=== PATIENT | male | born 1945 | race Caucasian/White ===

== ENCOUNTER 2019-11-13 08:46 | Inpatient (IN) ==
[2019-11-13] MEDS ORDERED: SODIUM CHLORIDE 0.9% 1000ML 1,000 ML IV SCH (09:00)
[2019-11-13] MEDS ORDERED: EPINEPHrine 2 MG in DEXTROSE 5% 250 ML IV STA (09:07)
[2019-11-13] MEDS ORDERED: STAT IV Infusion **Titration per Protocol STA ×2 (09:07→18:54)
[2019-11-13 09:24] LABS: Mean Corpuscular Hgb Conc 30.5 g/dL (32-36); Nucleated RBC # (auto) 0.07 K/uL (0-0); Nucleated RBC % (auto) 0.4 %
[2019-11-13 09:25] LABS: iSTAT Arterial Blood Gas HCO3 28 meg/L (19-24); iSTAT Arterial Blood Gas pCO2 111 mmHg (35-46); iSTAT Arterial Blood Gas pH 7.02 (7.35-7.45); iSTAT Arterial Blood Gas pO2 63 mmHg (80-95); iSTAT Carbon Dioxide 32 mmol/L (24-31); iSTAT Hematocrit 44 % (42-52); iSTAT Potassium 5.5 mmol/L (3.3-5.0); iSTAT Sodium 146 mmol/L (135-144)
[2019-11-13] MEDS: EPINEPHrine (STAT use only) 2 MG in D5W 250 ML IV SCH ×2 (09:28→12:32)
[2019-11-13 09:30] LABS: Hematocrit (blood only) 51.5 % (42-52); Hemoglobin 15.7 g/dL (14.0-18.0); Mean Corpuscular Hemoglobin 28.6 pg (25-34); RDW Coefficient of Variation 13.8 % (11.5-14.5); RDW Standard Deviation 47.6 fL (36.4-46.3); Red Blood Count 5.48 M/uL (4.7-6.1); White Blood Count 17.59 K/uL (4.8-10.8)
[2019-11-13 09:55] LABS: Mean Platelet Volume 12.8 fL (7.4-10.4); Platelet Count 151 K/uL (130-400)
[2019-11-13 09:56] LABS: Basophils # (auto) 0.08 K/uL (0-0.2); Basophils % (auto) 0.5 %; Eosinophils # (auto) 0.24 K/uL (0-0.5); Eosinophils % (auto) 1.4 %; Immature Granulocytes # (auto) 1.17 K/uL (0.00-0.02); Immature Granulocytes % (auto) 6.7 %; Lymphocytes # (auto) 4.42 K/uL (1.2-3.4); Lymphocytes % (auto) 25.1 %; Monocytes # (auto) 1.74 K/uL (0.11-0.59); Monocytes % (auto) 9.9 %; Neutrophils # (auto) 9.94 K/uL (1.4-6.5); Neutrophils % (auto) 56.4 %; Platelet Estimate Decreased (Normal)
[2019-11-13 10:11] LABS: Appearance Urine Turbid (Clear); Bacteria Urine Automated 2+ (Negative); Bilirubin Urine Negative (Negative); Blood Urine Trace (Negative); Color Urine Yellow; Epithelial Cell Urine Auto >30 /lpf (0-5); Glucose Urine UA Negative (Negative); Ketones Urine Negative (Negative); Leukocyte Esterase Urine Negative (Negative); Nitrite Urine Negative (Negative); Protein Urine 1+ (Negative); RBC Urine Automated 0-4 /hpf (0-4); Specific Gravity Urine 1.014 (1.000-1.030); Urobilinogen Urine Negative (Negative)
--- NOTE | 2019-11-13 10:11 | XRay Report ---
XR chest 1V portable CLINICAL HISTORY: weakness dyspnea COMPARISON STUDY: 12/03/2013 FINDINGS: Interval development of a diffuse right upper lobe infiltrate. Less prominent interval left upper lobe infiltrate. Lower lungs are generally clear. Slight accentuation left basilar lung markings. Myocardial megaly. Postoperative changes to the low cervical and upper thoracic spine are noted. Endotracheal tube 2.5 cm above the demetria. IMPRESSION: 1. Interval development of diffuse right upper and to a lesser extent left upper lobe infiltrates. 2. Potential early interstitial infiltrative change left base. ACT 112: Negative or not required by law. The above report was generated using voice recognition software. It may contain grammatical, syntax or spelling errors. Electronically signed by: Marcio Mack M.D. 11/13/2019 10:10 AM
[2019-11-13 10:12] LABS: INR 1.6 (0.9-1.1); Prothrombin Time 15.6 Seconds (9.0-12.0)
[2019-11-13 10:27] LABS: iSTAT Arterial Blood Gas HCO3 20 meg/L (19-24); iSTAT Arterial Blood Gas pCO2 52 mmHg (35-46); iSTAT Arterial Blood Gas pO2 243 mmHg (80-95); iSTAT Carbon Dioxide 22 mmol/L (24-31); iSTAT Hematocrit 45 % (42-52); iSTAT Hemoglobin 15.3 g/dl (14.0-18.0); iSTAT Potassium 7.2 mmol/L (3.3-5.0); iSTAT Sodium 135 mmol/L (135-144)
[2019-11-13 10:31] LABS: Sperm Urine Present (None Prsent)
[2019-11-13 10:31] LABS: Albumin Globulin Ratio 0.9 (0.9-2)
[2019-11-13 10:32] LABS: Creatine Kinase 817 U/L (39-308)
[2019-11-13 10:37] LABS: Alanine Aminotransferase 78 U/L (12-78); Albumin Level 2.5 gm/dl (3.4-5.0); Alkaline Phosphatase 95 U/L (45-117); Aspartate Aminotransferase 112 U/L (15-37); Bilirubin,Total 0.7 mg/dl (0.2-1); Blood Urea Nitrogen 16 mg/dl (7-18); Calcium 7.2 mg/dl (8.5-10.1); Carbon Dioxide 24 mmol/L (21-32); Chloride 106 mmol/L (98-107); Est GFR (African American) 47.7; Est GFR (Non-African American) 41.2; Globulin 2.8 gm/dl (2.5-4.0); Glucose 288 mg/dl (70-99); Magnesium 2.5 mg/dl (1.8-2.4); Potassium 6.5 mmol/L (3.5-5.1); Sodium 140 mmol/L (136-145); Total Protein 5.3 gm/dl (6.4-8.2)
[2019-11-13] MEDS ORDERED: CALCIUM CHLORIDE 10% 1,000 MG in SODIUM CHLORIDE 0.9% 50 ML IV STA (10:37)
[2019-11-13] MEDS ORDERED: SODIUM BICARB 8.4% INJ 50 MEQ/50 ML SYR IV STA (10:40)
[2019-11-13] MEDS ORDERED: PIPERACILL/TAZOBAC CONSULT ACTIVE PRN (10:44)
[2019-11-13] MEDS ORDERED: PIPERACILLIN/TAZOBACTAM 3.375 GM in DEXTROSE 5% 100 ML/100 ML BAG IV STA (10:44)
--- NOTE | 2019-11-13 10:54 | History & Physical Report ---
Date of Service November 13, 2019 Assessment & Plan (1) Cardiac arrest: Unwitnessed - found down at home. Prolonged CPR in the field and ED. Pt currently with pulse and BP on epinephrine drip. Being transferred to the ICU. Spoke with patient's family (son, daughter, [id number] and two granddaughters) - they would like to continue current measures for now (artificial ventilation, epi drip) but would not want additional chest compressions if pt would again lose pulse. Pt does have ICD in place - was working at last checkup but EMS raised concerns to family this AM as to whether or not it is functioning correctly. For now, continue current measures. Defer additional management plan to ICU team. Pt seen and reviewed with attending physician, Dr. James. Plan of care discussed - await critical care team input. Bib Wolf PA-C History of Present Illness Chief Complaint: cardiac arrest Primary Care Provider: Katelin Blackmon This is a 74 y/o male with a complicated PMH including dilated cardiomyopathy, s/p ICD placement, respiratory cardiac arrest in 2001, CAD, HTN, NSVT, COPD, LV apical thrombus (2004), prostate cancer and cervical cord compression (2014) who presented to the ED today in cardiac arrest. History obtained from ED physician and family. Around 7 am today, pt called his son complaining of shortness of breath. Family encouraged him to hit his med alert button, which he did. Apparently, when EMS arrived, pt was found to be in full cardiac arrest and resuscitation were initiated at the scene. Pt was intubated in the field. Initially was not responding to measure but EMS was able to get a pulse back in the field so pt transported to the ED. Here in the ED, resuscitative measures were continued including multiple doses of epinephrine, lidocaine and bicarb per ED provider. After 2-3 hours of resuscitative efforts, pt was found to have a pulse and BP which is being maintained on epinephrine drip. Pt remains on ventilator. Allergies Allergy/AdvReac Type Severity Reaction Status Date / Time No Known Allergies Allergy Unverified 11/13/19 09:34 Home Medications Home Medications Medication Instructions Recorded Confirmed Type CARVEDILOL (COREG) 25 mg PO BID #0 tab 12/03/13 History Furosemide (Lasix) 40 mg PO QAM #0 tab 12/03/13 History ASPIRIN (ASPIRIN EC) 81 mg PO QAM #0 06/08/15 History ATORVASTATIN (LIPITOR) 10 mg PO QPM #0 tab 02/21/15 History Acetaminophen Tab (TYLENOL) 650 mg PO Q4 PRN #0 tab 02/21/15 History CAPTOPRIL (CAPOTEN) 50 mg PO TID #0 tab 02/21/15 History CHOLECALCIFEROL (VITAMIN D 1000 1,000 inter.unit PO QPM #0 cap 02/21/15 History UNIT) GABAPENTIN (NEURONTIN) 100 mg PO TID #0 cap 02/21/15 History Hydrocodone/Acetaminophen 1 tab PO Q6 PRN #0 tab 02/21/15 History 5MG/325MG ([place] 5MG/325MG) OXYCODONE/ACETAMINOPHEN 5MG/325MG 1 tab PO Q6H PRN #0 tab 02/21/15 History SENNOSIDES-DOCUSATE SODIUM (SENNA 2 tab PO Q12H #0 02/21/15 History S) [id number] (VICKS 1 dose TOPICAL BID PRN #0 03/17/15 History VAPORUB) DICLOFENAC SODIUM (TOPICAL) 1 dose TOPICAL TID #0 03/17/15 History (VOLTAREN 1% TOP GEL) DULCOLAX SUPP 1 supp RE PRN #0 03/17/15 History FLUTICASONE PROPIONATE (NASAL) 2 spry INTRANASAL HS #0 03/17/15 History (FLONASE) MAGNESIUM HYDROXIDE (MILK OF 30 ml PO DAILY PRN #0 ml 03/17/15 History MAGNESIA) STOMAHESIVE POWDER 1 dose TOPICAL QPM #0 03/17/15 History WARFARIN SODIUM (COUMADIN) 4 mg PO QPM #0 tab 03/17/15 History ZINC OXIDE 40% 1 dose TOPICAL QPM #0 03/17/15 History Oxycodone HCl 5 mg PO Q4H PRN #30 tab 04/05/15 Rx Past Med/Surg History Medical History CAD (coronary artery disease) Cervical spinal stenosis (Acute) COPD (chronic obstructive pulmonary disease) Dilated cardiomyopathy Essential hypertension Heart disease (Resolved) History of cardiac arrest 2001 History of prostate cancer ICD (implantable cardioverter-defibrillator) in place Left ventricular thrombus 2004 Surgical History No significant past surgical history Social History Preferred Language: [place] Communication Ability: Unable Beliefs That Will Affect Care: None marital status: / Current Living Situation: Alone Feels Safe at Home: Yes Smoking Status: Unknown if ever smoked Review of Systems Review of Systems: Unobtainable due to endotracheal tube and Unobtainable due to reduced consciousness Physical Exam Constitutional: + mechanically ventilated Eyes: + fixed pupils ENMT: ETT in place Respiratory: Auscultation: + rhonchi (throughout) Cardiovascular: Rate/Rhythm: regular rate and regular rhythm Gastrointestinal (Abdomen): Percussion/Palpation: abdomen soft Musculoskeletal: Extremities cool to touch Skin: prolonged cap refill, nail beds dusky Neurologic: No Babinski present Does not respond to painful stimuli Results & Data Vital Signs (Past 12 Hours) Vital Signs Pulse Resp Pulse Ox 11/13/19 10:06 16 11/13/19 10:04 89 30 H 100 11/13/19 10:01 71 100 11/13/19 08:48 87 30 H 95 Laboratory Results Laboratory Results - last 24 hr 11/13/19 11/13/19 11/13/19 09:00 09:00 09:00 WBC 17.59 H RBC 5.48 Hgb 15.7 POC Hgb Hct 51.5 POC Hct MCV 94.0 MCH 28.6 MCHC 30.5 L RDW Std Deviation 47.6 H RDW Coeff of Meenakshi 13.8 Plt Count 151 MPV 12.8 H Immature Gran % (Auto) 6.7 Neut % (Auto) 56.4 Lymph % (Auto) 25.1 [place] % (Auto) 9.9 Eos % (Auto) 1.4 Baso % (Auto) 0.5 Immature Gran # (Auto) 1.17 H Neut # (Auto) 9.94 H Lymph # (Auto) 4.42 H [place] # (Auto) 1.74 H Eos # (Auto) 0.24 Baso # (Auto) 0.08 Absolute Nucleated RBC 0.07 H Nucleated RBC % (auto) 0.4 Platelet Estimate Decreased L PT Cancelled INR Cancelled POC pH POC pCO2 POC pO2 POC HCO3 POC Total CO2 POC Base Excess POC Sodium Sodium Cancelled POC Potassium Potassium Cancelled Chloride Cancelled Carbon Dioxide Cancelled Anion Gap Cancelled BUN Cancelled Creatinine Cancelled Est Cr Clr Drug Dosing Cancelled Est GFR ( Amer) Cancelled Est GFR (Non-Af Amer) Cancelled BUN/Creatinine Ratio Cancelled Glucose Cancelled Lactate Calcium Cancelled Magnesium Cancelled Total Bilirubin Cancelled AST Cancelled ALT Cancelled Alkaline Phosphatase Cancelled Total Creatine Kinase Cancelled Troponin I Cancelled Total Protein Cancelled Albumin Cancelled Globulin Cancelled Albumin/Globulin Ratio Cancelled TSH Cancelled Free T4 Specimen Hemolysis Urine Color Urine Appearance Urine pH Ur Specific [place] Urine Protein Urine Glucose (UA) Urine Ketones Urine Blood Urine Nitrite Urine Bilirubin Urine Urobilinogen Ur Leukocyte Esterase Urine WBC (Auto) Urine RBC (Auto) U Hyaline Cast (Auto) U Epithel Cells (Auto) Urine Bacteria (Auto) Urine Sperm Blood Type Antibody Screen 11/13/19 11/13/19 11/13/19 09:08 09:10 09:10 WBC RBC Hgb POC Hgb 15.0 Hct POC Hct 44 MCV MCH MCHC RDW Std Deviation RDW Coeff of Meenakshi Plt Count MPV Immature Gran % (Auto) Neut % (Auto) Lymph % (Auto) [place] % (Auto) Eos % (Auto) Baso % (Auto) Immature Gran # (Auto) Neut # (Auto) Lymph # (Auto) [place] # (Auto) Eos # (Auto) Baso # (Auto) Absolute Nucleated RBC Nucleated RBC % (auto) Platelet Estimate PT INR POC pH 7.02 L* POC pCO2 111 H POC pO2 63 L POC HCO3 28 H POC Total CO2 32 H POC Base Excess -3.0 POC Sodium 146 H Sodium POC Potassium 5.5 H Potassium Chloride Carbon Dioxide Anion Gap BUN Creatinine Est Cr Clr Drug Dosing Est GFR ( Amer) Est GFR (Non-Af Amer) BUN/Creatinine Ratio Glucose Lactate Cancelled Calcium Magnesium Total Bilirubin AST ALT Alkaline Phosphatase Total Creatine Kinase Troponin I Total Protein Albumin Globulin Albumin/Globulin Ratio TSH Free T4 Specimen Hemolysis Urine Color Urine Appearance Urine pH Ur Specific [place] Urine Protein Urine Glucose (UA) Urine Ketones Urine Blood Urine Nitrite Urine Bilirubin Urine Urobilinogen Ur Leukocyte Esterase Urine WBC (Auto) Urine RBC (Auto) U Hyaline Cast (Auto) U Epithel Cells (Auto) Urine Bacteria (Auto) Urine Sperm Blood Type Cancelled Antibody Screen Cancelled 11/13/19 11/13/19 11/13/19 09:30 09:55 09:55 WBC RBC Hgb POC Hgb Hct POC Hct MCV MCH MCHC RDW Std Deviation RDW Coeff of Meenakshi Plt Count MPV Immature Gran % (Auto) Neut % (Auto) Lymph % (Auto) [place] % (Auto) Eos % (Auto) Baso % (Auto) Immature Gran # (Auto) Neut # (Auto) Lymph # (Auto) [place] # (Auto) Eos # (Auto) Baso # (Auto) Absolute Nucleated RBC Nucleated RBC % (auto) Platelet Estimate PT 15.6 H INR 1.6 H POC pH POC pCO2 POC pO2 POC HCO3 POC Total CO2 POC Base Excess POC Sodium Sodium 140 POC Potassium Potassium 6.5 H* Chloride 106 Carbon Dioxide 24 Anion Gap 10.0 BUN 16 Creatinine 1.63 H Est Cr Clr Drug Dosing Not Reportable Est GFR ( Amer) 47.7 Est GFR (Non-Af Amer) 41.2 BUN/Creatinine Ratio 10.0 Glucose 288 H Lactate Calcium 7.2 L Magnesium 2.5 H Total Bilirubin 0.7 AST 112 H ALT 78 Alkaline Phosphatase 95 Total Creatine Kinase 817 H Troponin I 8.920 H* Total Protein 5.3 L Albumin 2.5 L Globulin 2.8 Albumin/Globulin Ratio 0.9 TSH 13.000 H Free T4 Pending Specimen Hemolysis Urine Color Yellow Urine Appearance Turbid A Urine pH 6.0 Ur Specific [place] 1.014 Urine Protein 1+ H Urine Glucose (UA) Negative Urine Ketones Negative Urine Blood Trace H Urine Nitrite Negative Urine Bilirubin Negative Urine Urobilinogen Negative Ur Leukocyte Esterase Negative Urine WBC (Auto) 10-30 H Urine RBC (Auto) 0-4 U Hyaline Cast (Auto) 1-5 U Epithel Cells (Auto) >30 H Urine Bacteria (Auto) 2+ H Urine Sperm Present A Blood Type Antibody Screen 11/13/19 11/13/19 09:55 09:56 WBC RBC Hgb POC Hgb 15.3 Hct POC Hct 45 MCV MCH MCHC RDW Std Deviation RDW Coeff of Meenakshi Plt Count MPV Immature Gran % (Auto) Neut % (Auto) Lymph % (Auto) [place] % (Auto) Eos % (Auto) Baso % (Auto) Immature Gran # (Auto) Neut # (Auto) Lymph # (Auto) [place] # (Auto) Eos # (Auto) Baso # (Auto) Absolute Nucleated RBC Nucleated RBC % (auto) Platelet Estimate PT INR POC pH 7.20 L POC pCO2 52 H POC pO2 243 H POC HCO3 20 POC Total CO2 22 L POC Base Excess -8.0 POC Sodium 135 Sodium POC Potassium 7.2 H* Potassium Chloride Carbon Dioxide Anion Gap BUN Creatinine Est Cr Clr Drug Dosing Est GFR ( Amer) Est GFR (Non-Af Amer) BUN/Creatinine Ratio Glucose Lactate 9.3 H* Calcium Magnesium Total Bilirubin AST ALT Alkaline Phosphatase Total Creatine Kinase Troponin I Total Protein Albumin Globulin Albumin/Globulin Ratio TSH Free T4 Specimen Hemolysis Urine Color Urine Appearance Urine pH Ur Specific [place] Urine Protein Urine Glucose (UA) Urine Ketones Urine Blood Urine Nitrite Urine Bilirubin Urine Urobilinogen Ur Leukocyte Esterase Urine WBC (Auto) Urine RBC (Auto) U Hyaline Cast (Auto) U Epithel Cells (Auto) Urine Bacteria (Auto) Urine Sperm Blood Type Antibody Screen Diagnostic Findings Chest x-ray 11/13/2019 - IMPRESSION: 1. Interval development of diffuse right upper and to a lesser extent left upper lobe infiltrates. 2. Potential early interstitial infiltrative change left base. Medications Administered Epinephrine HCl 4 mg/ Dextrose 254 mls @ 190.5 mls/hr IV .Q1H20M JACK; Protocol Stop: 12/13/19 09:59 Last Admin: 11/13/19 10:15 Dose: 0.5 mcg/kg/min, 190.5 mls/hr Documented by: [id number] Cosigned by: [id number] Discontinued Medications Sodium Chloride (Nss 1000ml) 1,000 mls @ 999 mls/hr IV .Q1H1M JACK Stop: 11/13/19 10:00 Last Infusion: 11/13/19 10:15 Dose: 0 mls/hr Documented by: [id number] Admin: 11/13/19 09:15 Dose: 999 mls/hr Documented by: [id number] Epinephrine HCl 2 mg/ Dextrose 252 mls @ 378 mls/hr IV .Q40M JACK; Protocol Stop: 11/13/19 10:45 Last Titration: 11/13/19 10:15 Dose: 0 mcg/kg/min, 0 mls/hr Documented by: [id number] Admin: 11/13/19 09:28 Dose: 0.5 mcg/kg/min, 378 mls/hr Documented by: [id number] Cosigned by: [id number] Sodium Bicarbonate (Sodium Bicarbonate 8.4%) 50 meq IV NOW STA Stop: 11/13/19 10:41 Last Admin: 11/13/19 10:50 Dose: 50 meq Documented by: [id number] Code Status & VTE Plan VTE Prophylaxis Plan VTE Prophylaxis will be ordered: Yes Supervising Physician Co-Signing Physician Notes Pt was and examined. Agreed with Anna WHYTE exam, assessment and plan. 74 y/o male with a complicated PMH including dilated cardiomyopathy, s/p ICD placement, respiratory cardiac arrest in 2001, CAD, HTN, NSVT, COPD, LV apical thrombus (2004), prostate cancer and cervical cord compression (2014) was brought to the ED today after found on the floor unwitnessed in cardiac arrest. CPR was done in the field by EMS and ED. After prolonged CPR, Pt had return of spontaneous circulation. Pt was intubated on the field and currently on pressor. Spoke with family and does not want to proceed to any heroic management. As per family if pt code, lost pulses again, would not want additional chest compressions. Will admit to the ICU and monitor closely. MD Erika
--- NOTE | 2019-11-13 10:55 | Emergency Department Note ---
Entered by Myla Spivey acting as a scribe for Gasper Lau DO History of Present Illness General Chief complaint: Cardiac Arrest/CPR Time Seen by Provider: 11/13/19 08:55 Source: EMS Mode of arrival: EMS History of Present Illness Provider complaint: cardiac arrest Onset (ago): hour(s) ([employer]) Location: chest Relieved By: + none Exacerbated By: + none Treatments prior to arrival: other (Epinephrine and Lidocaine) The patient is a 74 year old male who presents to the Emergency Room with complaints of cardiac arrest prior to arrival. Per EMS, the patient was on his phone with his son 10 minutes prior to calling EMS through his Medical Alert button. They state that when they arrived the patient was in cardiac arrest. They note that the patient was given 100 g of Lidocaine and a total of 7 mg of Epinephrine prior to arrival. Home Medications Home Medications Medication Instructions Recorded Confirmed Type CARVEDILOL (COREG) 25 mg PO BID #0 tab 12/03/13 History Furosemide (Lasix) 40 mg PO QAM #0 tab 12/03/13 History ASPIRIN (ASPIRIN EC) 81 mg PO QAM #0 02/21/15 History ATORVASTATIN (LIPITOR) 10 mg PO QPM #0 tab 02/21/15 History Acetaminophen Tab (TYLENOL) 650 mg PO Q4 PRN #0 tab 02/21/15 History CAPTOPRIL (CAPOTEN) 50 mg PO TID #0 tab 02/21/15 History CHOLECALCIFEROL (VITAMIN D 1000 1,000 inter.unit PO QPM #0 cap 02/21/15 History UNIT) GABAPENTIN (NEURONTIN) 100 mg PO TID #0 cap 02/21/15 History Hydrocodone/Acetaminophen 1 tab PO Q6 PRN #0 tab 02/21/15 History 5MG/325MG ([place] 5MG/325MG) OXYCODONE/ACETAMINOPHEN 5MG/325MG 1 tab PO Q6H PRN #0 tab 02/21/15 History SENNOSIDES-DOCUSATE SODIUM (SENNA 2 tab PO Q12H #0 02/21/15 History S) [id number] (VICKS 1 dose TOPICAL BID PRN #0 03/17/15 History VAPORUB) DICLOFENAC SODIUM (TOPICAL) 1 dose TOPICAL TID #0 03/17/15 History (VOLTAREN 1% TOP GEL) DULCOLAX SUPP 1 supp RE PRN #0 03/17/15 History FLUTICASONE PROPIONATE (NASAL) 2 spry INTRANASAL HS #0 03/17/15 History (FLONASE) MAGNESIUM HYDROXIDE (MILK OF 30 ml PO DAILY PRN #0 ml 03/17/15 History MAGNESIA) STOMAHESIVE POWDER 1 dose TOPICAL QPM #0 03/17/15 History WARFARIN SODIUM (COUMADIN) 4 mg PO QPM #0 tab 03/17/15 History ZINC OXIDE 40% 1 dose TOPICAL QPM #0 03/17/15 History Oxycodone HCl 5 mg PO Q4H PRN #30 tab 04/05/15 Rx Allergies Allergy/AdvReac Type Severity Reaction Status Date / Time No Known Allergies Allergy Unverified 11/13/19 09:34 Past Med/Surg History Medical History (Updated 11/13/19 @ 10:55 by Gasper Lau DO) CAD (coronary artery disease) Cervical spinal stenosis (Acute) COPD (chronic obstructive pulmonary disease) Dilated cardiomyopathy Essential hypertension Heart disease (Resolved) History of cardiac arrest 2001 History of prostate cancer ICD (implantable cardioverter-defibrillator) in place Left ventricular thrombus 2004 Surgical History No significant past surgical history Social History (Updated 11/13/19 @ 10:52 by Anna Wolf PA-C) Preferred Language: Armenian marital status: / Current Living Situation: Alone Feels Safe at Home: Yes Smoking Status: Unknown if ever smoked Review of Systems See HPI for pertinent positives & negatives. and A total of 10 systems reviewed and were otherwise negative Physical Exam Vital Signs Vital Signs - 24 hr 11/13/19 08:48 11/13/19 08:51 11/13/19 10:01 Pulse Rate 87 71 Pulse Rate [Apical] 81 Pulse Rhythm Regular Respiratory Rate 30 H Respiratory Effort / Characteristics Mechanically Ventilated Other Respiratory Pattern Regular Blood Pressure [Right Arm] 149/98 H Blood Pressure Mean [Right Arm] 115 Blood Pressure Position [Right Arm] Lying Pulse Oximetry 95 100 Oxygen Delivery Method Ambu-Bag Ambu-Bag Oxygen Flow Rate 15 Fraction of Inspired Oxygen 80 Sepsis Recent Fever Within 48 Hours No Sepsis New/Unexplained Change in Mental Status No Sepsis Action Taken by Nursing No Action Required 11/13/19 10:04 11/13/19 10:06 Pulse Rate 89 Pulse Rate [Apical] Pulse Rhythm Respiratory Rate 30 H 16 Respiratory Effort / Characteristics Respiratory Pattern Blood Pressure [Right Arm] Blood Pressure Mean [Right Arm] Blood Pressure Position [Right Arm] Pulse Oximetry 100 Oxygen Delivery Method Oxygen Flow Rate Fraction of Inspired Oxygen 100 100 Sepsis Recent Fever Within 48 Hours Sepsis New/Unexplained Change in Mental Status Sepsis Action Taken by Nursing CONSTITUTIONAL/VITAL SIGNS: Reviewed / noted above. GENERAL: Endotracheal tube in place. CPR in progress on arrival. INTEGUMENTARY: Warm, dry, and [place]. HEAD: Normocephalic. EYES: without scleral icterus or trauma. ENT/OROPHARYNX: clear and moist. LYMPHADENOPATHY/NECK: Is supple without lymphadenopathy or meningismus. RESPIRATORY: Lungs clear and equal. CARDIOVASCULAR: Regular rate and rhythm. GI/ABDOMEN: Soft and nontender. No organomegaly or pulsatile mass. No rebound or guarding. Normal bowel sounds. EXTREMITIES: Radial pulses present. Femoral pulses not present. Cool extremities. BACK: No CVA tenderness. NEUROLOGICAL: Intact without focal deficits. PSYCHIATRIC: normal affect. MUSCULOSKELETAL: Normally developed with good muscle tone. Procedures Free Text Procedures CPR CPR was used during the patient's resuscitation using the Nick device. ABG Interpretation ABG Interpretation 1: ABG Results: pH is 7.0, PCO2 110, PO2 63, bicarb 28, potassium 5.5 Interpretation: respiratory acidosis and metabolic acidosis ABG Interpretation 2: ABG Results: pH 7.2, PCO2 52, PaO2 243, bicarb 22 Interpretation: respiratory acidosis and metabolic acidosis Central Line Placement Right Femoral: Time Out Performed: Yes Patient Placed on Monitor/Pulse Ox: Yes Central Line Prep: Chlorhexidine scrub Ultrasound Used for Placement: Yes Central Line Lumen Inserted: triple Post Procedure: good blood return, all ports aspirated, flushed, capped and sterile dressing applied Complications: none Course Course 0847: The patient was evaluated in room B1, and a complete history and physical examination were performed. 0849: A central line was placed, see procedural note for details. 0851: 1 mg Epinephrine was given through the central line. 0852: Bicarbonate was given through the central line. 0855: The patient was stable at this time. 0900: The patient went back into cardiac arrest. 0902: 1 mg Epinephrine was given through the central line. 0904: Bicarbonate was given through the central line. 0907: The patient was stable at this time. 0910: The patient was placed on Epinephrine drip. 0912: The patient went back into cardiac arrest. 0934: I had a discussion with the patient's family about the patient's condition. 0940: The patient was stable at this time. 0949: I reviewed the patient's case with Dr. Koehler- [facility] ICU. He will accept the patient when there is a bed available. 0958: I reviewed the patient's case with Dr. Wolf. She will evaluate the patient for further management. 1009: I reviewed the patient's case with Dr. Arevalo [facility]. 1020: I discussed with the patient's family about the patient's treatment plan. Administered Medications Epinephrine HCl 4 mg/ Dextrose 254 mls @ 190.5 mls/hr IV .Q1H20M JACK; Protocol Stop: 12/13/19 09:59 Last Admin: 11/13/19 10:15 Dose: 0.5 mcg/kg/min, 190.5 mls/hr Documented by: [id number] Cosigned by: [id number] Discontinued Medications Sodium Chloride (Nss 1000ml) 1,000 mls @ 999 mls/hr IV .Q1H1M JACK Stop: 11/13/19 10:00 Last Infusion: 11/13/19 10:15 Dose: 0 mls/hr Documented by: [id number] Admin: 11/13/19 09:15 Dose: 999 mls/hr Documented by: [id number] Epinephrine HCl 2 mg/ Dextrose 252 mls @ 378 mls/hr IV .Q40M JACK; Protocol Stop: 11/13/19 10:45 Last Titration: 11/13/19 10:15 Dose: 0 mcg/kg/min, 0 mls/hr Documented by: [id number] Admin: 11/13/19 09:28 Dose: 0.5 mcg/kg/min, 378 mls/hr Documented by: [id number] Cosigned by: [id number] Sodium Bicarbonate (Sodium Bicarbonate 8.4%) 50 meq IV NOW STA Stop: 11/13/19 10:41 Last Admin: 11/13/19 10:50 Dose: 50 meq Documented by: [id number] Critical Care Time Critical Care Time: Yes Total Critical Care Time: 120 I have personally spent 120 minutes of critical care time in the direct management of this patient. This includes bedside care, interpretation of diagnostic studies, and testing, discussion with consultants, patient, and family members, and other required patient management activities. This 120 minutes is in excess of all separately billable procedures. Medical Decision Making Differential Diagnosis Differential diagnosis: Etiologies such as cardiac ischemia, aortic dissection, pulmonary embolism, electrolyte abnormality, acidosis, tension pneumothorax, hypothermia, hypovolemia, intracranial event, as well as others were entertained. Medical Records Attestation: I reviewed the patient's medical records. Home Medications Current Medication List: was personally reviewed by me Laboratory Data Attestation: I reviewed the patient's lab results. Result diagrams: 11/13/19 09:00 11/13/19 09:55 Lab Results 11/13/19 11/13/19 11/13/19 Range/Units 09:00 09:00 09:00 WBC 17.59 H (4.8-10.8) K/uL RBC 5.48 (4.7-6.1) M/uL Hgb 15.7 (14.0-18.0) g/dL POC Hgb (14.0-18.0) g/dl Hct 51.5 (42-52) % POC Hct (42-52) % MCV 94.0 (80-100) fL MCH 28.6 (25-34) pg MCHC 30.5 L (32-36) g/dL RDW Std Deviation 47.6 H (36.4-46.3) fL RDW Coeff of Meenakshi 13.8 (11.5-14.5) % Plt Count 151 (130-400) K/uL MPV 12.8 H (7.4-10.4) fL Immature Gran % (Auto) 6.7 % Neut % (Auto) 56.4 % Lymph % (Auto) 25.1 % Bryan % (Auto) 9.9 % Eos % (Auto) 1.4 % Baso % (Auto) 0.5 % Immature Gran # (Auto) 1.17 H (0.00-0.02) K/uL Neut # (Auto) 9.94 H (1.4-6.5) K/uL Lymph # (Auto) 4.42 H (1.2-3.4) K/uL Bryan # (Auto) 1.74 H (0.11-0.59) K/uL Eos # (Auto) 0.24 (0-0.5) K/uL Baso # (Auto) 0.08 (0-0.2) K/uL Absolute Nucleated RBC 0.07 H (0-0) K/uL Nucleated RBC % (auto) 0.4 % Platelet Estimate Decreased L (Normal) PT Cancelled INR Cancelled POC pH (7.35-7.45) POC pCO2 (35-46) mmHg POC pO2 (80-95) mmHg POC HCO3 (19-24) albert/L POC Total CO2 (24-31) mmol/L POC Base Excess (-9-1.8) albert/L POC Sodium (135-144) mmol/L Sodium Cancelled POC Potassium (3.3-5.0) mmol/L Potassium Cancelled Chloride Cancelled Carbon Dioxide Cancelled Anion Gap Cancelled BUN Cancelled Creatinine Cancelled Est Cr Clr Drug Dosing Cancelled Est GFR ( Amer) Cancelled Est GFR (Non-Af Amer) Cancelled BUN/Creatinine Ratio Cancelled Glucose Cancelled Lactate Calcium Cancelled Magnesium Cancelled Total Bilirubin Cancelled AST Cancelled ALT Cancelled Alkaline Phosphatase Cancelled Total Creatine Kinase Cancelled Troponin I Cancelled Total Protein Cancelled Albumin Cancelled Globulin Cancelled Albumin/Globulin Ratio Cancelled TSH Cancelled Specimen Hemolysis Urine Color Urine Appearance (Clear) Urine pH (4.5-7.5) Ur Specific [place] (1.000-1.030) Urine Protein (Negative) Urine Glucose (UA) (Negative) Urine Ketones (Negative) Urine Blood (Negative) Urine Nitrite (Negative) Urine Bilirubin (Negative) Urine Urobilinogen (Negative) Ur Leukocyte Esterase (Negative) Urine WBC (Auto) (0-5) /hpf Urine RBC (Auto) (0-4) /hpf U Hyaline Cast (Auto) (0-5) /lpf U Epithel Cells (Auto) (0-5) /lpf Urine Bacteria (Auto) (Negative) Urine Sperm (None Prsent) Blood Type Antibody Screen 11/13/19 11/13/19 11/13/19 Range/Units 09:08 09:10 09:10 WBC (4.8-10.8) K/uL RBC (4.7-6.1) M/uL Hgb (14.0-18.0) g/dL POC Hgb 15.0 (14.0-18.0) g/dl Hct (42-52) % POC Hct 44 (42-52) % MCV (80-100) fL MCH (25-34) pg MCHC (32-36) g/dL RDW Std Deviation (36.4-46.3) fL RDW Coeff of Meenakshi (11.5-14.5) % Plt Count (130-400) K/uL MPV (7.4-10.4) fL Immature Gran % (Auto) % Neut % (Auto) % Lymph % (Auto) % Bryan % (Auto) % Eos % (Auto) % Baso % (Auto) % Immature Gran # (Auto) (0.00-0.02) K/uL Neut # (Auto) (1.4-6.5) K/uL Lymph # (Auto) (1.2-3.4) K/uL Bryan # (Auto) (0.11-0.59) K/uL Eos # (Auto) (0-0.5) K/uL Baso # (Auto) (0-0.2) K/uL Absolute Nucleated RBC (0-0) K/uL Nucleated RBC % (auto) % Platelet Estimate (Normal) PT INR POC pH 7.02 L* (7.35-7.45) POC pCO2 111 H (35-46) mmHg POC pO2 63 L (80-95) mmHg POC HCO3 28 H (19-24) albert/L POC Total CO2 32 H (24-31) mmol/L POC Base Excess -3.0 (-9-1.8) albert/L POC Sodium 146 H (135-144) mmol/L Sodium POC Potassium 5.5 H (3.3-5.0) mmol/L Potassium Chloride Carbon Dioxide Anion Gap BUN Creatinine Est Cr Clr Drug Dosing Est GFR ( Amer) Est GFR (Non-Af Amer) BUN/Creatinine Ratio Glucose Lactate Cancelled Calcium Magnesium Total Bilirubin AST ALT Alkaline Phosphatase Total Creatine Kinase Troponin I Total Protein Albumin Globulin Albumin/Globulin Ratio TSH Specimen Hemolysis Urine Color Urine Appearance (Clear) Urine pH (4.5-7.5) Ur Specific [place] (1.000-1.030) Urine Protein (Negative) Urine Glucose (UA) (Negative) Urine Ketones (Negative) Urine Blood (Negative) Urine Nitrite (Negative) Urine Bilirubin (Negative) Urine Urobilinogen (Negative) Ur Leukocyte Esterase (Negative) Urine WBC (Auto) (0-5) /hpf Urine RBC (Auto) (0-4) /hpf U Hyaline Cast (Auto) (0-5) /lpf U Epithel Cells (Auto) (0-5) /lpf Urine Bacteria (Auto) (Negative) Urine Sperm (None Prsent) Blood Type Cancelled Antibody Screen Cancelled 11/13/19 11/13/19 11/13/19 Range/Units 09:30 09:55 09:55 WBC (4.8-10.8) K/uL RBC (4.7-6.1) M/uL Hgb (14.0-18.0) g/dL POC Hgb (14.0-18.0) g/dl Hct (42-52) % POC Hct (42-52) % MCV (80-100) fL MCH (25-34) pg MCHC (32-36) g/dL RDW Std Deviation (36.4-46.3) fL RDW Coeff of Meenakshi (11.5-14.5) % Plt Count (130-400) K/uL MPV (7.4-10.4) fL Immature Gran % (Auto) % Neut % (Auto) % Lymph % (Auto) % Bryan % (Auto) % Eos % (Auto) % Baso % (Auto) % Immature Gran # (Auto) (0.00-0.02) K/uL Neut # (Auto) (1.4-6.5) K/uL Lymph # (Auto) (1.2-3.4) K/uL Bryan # (Auto) (0.11-0.59) K/uL Eos # (Auto) (0-0.5) K/uL Baso # (Auto) (0-0.2) K/uL Absolute Nucleated RBC (0-0) K/uL Nucleated RBC % (auto) % Platelet Estimate (Normal) PT 15.6 H INR 1.6 H POC pH (7.35-7.45) POC pCO2 (35-46) mmHg POC pO2 (80-95) mmHg POC HCO3 (19-24) albert/L POC Total CO2 (24-31) mmol/L POC Base Excess (-9-1.8) albert/L POC Sodium (135-144) mmol/L Sodium 140 POC Potassium (3.3-5.0) mmol/L Potassium 6.5 H* Chloride 106 Carbon Dioxide 24 Anion Gap 10.0 BUN 16 Creatinine 1.63 H Est Cr Clr Drug Dosing Not Reportable Est GFR ( Amer) 47.7 Est GFR (Non-Af Amer) 41.2 BUN/Creatinine Ratio 10.0 Glucose 288 H Lactate Calcium 7.2 L Magnesium 2.5 H Total Bilirubin 0.7 AST 112 H ALT 78 Alkaline Phosphatase 95 Total Creatine Kinase 817 H Troponin I 8.920 H* Total Protein 5.3 L Albumin 2.5 L Globulin 2.8 Albumin/Globulin Ratio 0.9 TSH 13.000 H Specimen Hemolysis Urine Color Yellow Urine Appearance Turbid A (Clear) Urine pH 6.0 (4.5-7.5) Ur Specific [place] 1.014 (1.000-1.030) Urine Protein 1+ H (Negative) Urine Glucose (UA) Negative (Negative) Urine Ketones Negative (Negative) Urine Blood Trace H (Negative) Urine Nitrite Negative (Negative) Urine Bilirubin Negative (Negative) Urine Urobilinogen Negative (Negative) Ur Leukocyte Esterase Negative (Negative) Urine WBC (Auto) 10-30 H (0-5) /hpf Urine RBC (Auto) 0-4 (0-4) /hpf U Hyaline Cast (Auto) 1-5 (0-5) /lpf U Epithel Cells (Auto) >30 H (0-5) /lpf Urine Bacteria (Auto) 2+ H (Negative) Urine Sperm Present A (None Prsent) Blood Type Antibody Screen 11/13/19 11/13/19 Range/Units 09:55 09:56 WBC (4.8-10.8) K/uL RBC (4.7-6.1) M/uL Hgb (14.0-18.0) g/dL POC Hgb 15.3 (14.0-18.0) g/dl Hct (42-52) % POC Hct 45 (42-52) % MCV (80-100) fL MCH (25-34) pg MCHC (32-36) g/dL RDW Std Deviation (36.4-46.3) fL RDW Coeff of Meenakshi (11.5-14.5) % Plt Count (130-400) K/uL MPV (7.4-10.4) fL Immature Gran % (Auto) % Neut % (Auto) % Lymph % (Auto) % Bryan % (Auto) % Eos % (Auto) % Baso % (Auto) % Immature Gran # (Auto) (0.00-0.02) K/uL Neut # (Auto) (1.4-6.5) K/uL Lymph # (Auto) (1.2-3.4) K/uL Bryan # (Auto) (0.11-0.59) K/uL Eos # (Auto) (0-0.5) K/uL Baso # (Auto) (0-0.2) K/uL Absolute Nucleated RBC (0-0) K/uL Nucleated RBC % (auto) % Platelet Estimate (Normal) PT INR POC pH 7.20 L (7.35-7.45) POC pCO2 52 H (35-46) mmHg POC pO2 243 H (80-95) mmHg POC HCO3 20 (19-24) albert/L POC Total CO2 22 L (24-31) mmol/L POC Base Excess -8.0 (-9-1.8) albert/L POC Sodium 135 (135-144) mmol/L Sodium POC Potassium 7.2 H* (3.3-5.0) mmol/L Potassium Chloride Carbon Dioxide Anion Gap BUN Creatinine Est Cr Clr Drug Dosing Est GFR ( Amer) Est GFR (Non-Af Amer) BUN/Creatinine Ratio Glucose Lactate 9.3 H* Calcium Magnesium Total Bilirubin AST ALT Alkaline Phosphatase Total Creatine Kinase Troponin I Total Protein Albumin Globulin Albumin/Globulin Ratio TSH Specimen Hemolysis Urine Color Urine Appearance (Clear) Urine pH (4.5-7.5) Ur Specific [place] (1.000-1.030) Urine Protein (Negative) Urine Glucose (UA) (Negative) Urine Ketones (Negative) Urine Blood (Negative) Urine Nitrite (Negative) Urine Bilirubin (Negative) Urine Urobilinogen (Negative) Ur Leukocyte Esterase (Negative) Urine WBC (Auto) (0-5) /hpf Urine RBC (Auto) (0-4) /hpf U Hyaline Cast (Auto) (0-5) /lpf U Epithel Cells (Auto) (0-5) /lpf Urine Bacteria (Auto) (Negative) Urine Sperm (None Prsent) Blood Type Antibody Screen Imaging Data Radiologist's Impression: Radiology results as stated below per my review and the radiologist's interpretation: XR chest 1V portable CLINICAL HISTORY: weakness dyspnea COMPARISON STUDY: 12/03/2013 FINDINGS: Interval development of a diffuse right upper lobe infiltrate. Less prominent interval left upper lobe infiltrate. Lower lungs are generally clear. Slight accentuation left basilar lung markings. Myocardial megaly. Postoperative changes to the low cervical and upper thoracic spine are noted. Endotracheal tube 2.5 cm above the demetria. IMPRESSION: 1. Interval development of diffuse right upper and to a lesser extent left upper lobe infiltrates. 2. Potential early interstitial infiltrative change left base. ACT 112: Negative or not required by law. The above report was generated using voice recognition software. It may contain grammatical, syntax or spelling errors. Electronically signed by: Marcio Mack M.D. 11/13/2019 10:10 AM ECG Data Attestation: I personally reviewed and interpreted this ECG as follows: Indication: + chest pain Rate (beats per minute): 108 Rhythm: + sinus tachycardia ECG Intervals/blocks: + Right Bundle branch block and + Prolonged QT ECG Findings: + Other (negative sgarbossa); no PVCs Blood Pressure Blood Pressure Findings: Elevated blood pressure Blood Pressure Disposition: further management by hospitalist MDM Narrative The patient presents to the ED by EMS. The patient has a history of cardiomyopathy, history of cardiac arrest in 2001, implanted defibrillator/pa cemaker. The patient was speaking with family this morning around 7 AM because he was short of breath and having chest pain. The patient used his alert device to summon EMS. Upon EMS arrival, the patient was in cardiac arrest in a PEA fashion with a paced rhythm. The patient was resuscitated with endotracheal intubation as well as IV/IO epinephrine. At one point, the instruction librarian thought the patient's defibrillator may have activated. They gave 100 mg of IV lidocaine. The patient had a prolonged resuscitation in the prehospital arena and arrived approximately 1 hour or more after his initial called EMS. They had numerous episodes where he would regain pulses with epinephrine and then would lose pulses. The patient was brought in on the Nick advice with CPR in progress. The patient had a blood pressure when he arrived. The patient lost his blood pressure and pulses although a bedside cardiac ultrasound showed continued contraction of the heart with lack of septal motion. With CPR and epinephrine the patient would regain pulses. The patient was resuscitated with IV bicarb as well as additional epinephrine. He never required defibrillation. He did lose pulses numerous times in the ED. As the resuscitation was somewhat prolonged, I spoke with the family with regards to the patient's status. The plan was to withdraw care if the patient had no pulses. He was placed on epinephrine drip in the interim. The patient did not require any additional CPR during his ED stay. His blood pressure and pulse remained. The patient was put on a increased ventilator rate at a rate of 30 and his second ABG improved from his initial 1. He was given some IV calcium as his potassium was elevated at 6.5. Creatinine is 1.63. Lactic acid level was elevated. Troponin was elevat ed at 8.9. Urine did not show obvious infection. Chest x-ray reveals bilateral pneumonia. EKG showed a sinus tach at a rate of 108 with a left bundle branch block pattern. There was intermittent pacing noted on the monitor. After talking the family, no additional CPR was planned if the patient would require this, we would terminate resuscitation efforts. The patient remained with a blood pressure and pulse on the ventilator in the ED and will be admitted to the ICU. I did speak with Dr. Hunter about the patient. I also spoke with Dr. Boothe from interventional cardiology. He did not feel the patient was a good candidate for interventional cardiology at this time. He recommended admitting to the ICU with cardiology consult. Impression & Plan Cardiac arrest, Bilateral pneumonia, Acute hyperkalemia, Elevated troponin Discharge Plan Visit Data Chief Complaint: Cardiac Arrest/CPR ED Provider: Gasper Lau Discharge Problem: Cardiac arrest, Bilateral pneumonia, Acute hyperkalemia, Elevated troponin Patient Disposition: Being Evaluated by Hospitalist Forms Stand Alone Forms: My [facility] Prescriptions Prescriptions: No Action CARVEDILOL (COREG) 25 MG tablet 25 mg PO BID Qty: 0 RF: 0 Furosemide (Lasix) 40 MG tablet 40 mg PO QAM Qty: 0 RF: 0 ASPIRIN (ASPIRIN EC) 81 MG tablet 81 mg PO QAM Qty: 0 RF: 0 ATORVASTATIN (LIPITOR) 10 MG tablet 10 mg PO QPM Qty: 0 RF: 0 Acetaminophen Tab (TYLENOL) 325 MG tablet 650 mg PO Q4 PRN (Reason: MILD PAIN) Qty: 0 RF: 0 CAPTOPRIL (CAPOTEN) 50 MG tablet 50 mg PO TID Qty: 0 RF: 0 CHOLECALCIFEROL (VITAMIN D 1000 UNIT) 1,000 UNIT capsule 1,000 inter.unit PO QPM Qty: 0 RF: 0 GABAPENTIN (NEURONTIN) 100 MG capsule 100 mg PO TID Qty: 0 RF: 0 Hydrocodone/Acetaminophen 5MG/325MG ([place] 5MG/325MG) tablet 1 tab PO Q6 PRN (Reason: Pain) Qty: 0 RF: 0 OXYCODONE/ACETAMINOPHEN 5MG/325MG 1 TAB tablet 1 tab PO Q6H PRN (Reason: Pain) Qty: 0 RF: 0 SENNOSIDES-DOCUSATE SODIUM (SENNA S) 1 TAB tablet 2 tab PO Q12H Qty: 0 RF: 0 DICLOFENAC SODIUM (TOPICAL) (VOLTAREN 1% TOP GEL) 1 % gel 1 dose Topical TID Qty: 0 RF: 0 DULCOLAX SUPP 1 supp RE PRN Qty: 0 RF: 0 FLUTICASONE PROPIONATE (NASAL) (FLONASE) 50 MCG/ACT SPR 2 spry Intranasal HS Qty: 0 RF: 0 STOMAHESIVE POWDER 1 dose Topical QPM Qty: 0 RF: 0 WARFARIN SODIUM (COUMADIN) 4 MG tablet 4 mg PO QPM Qty: 0 RF: 0 ZINC OXIDE 40% 1 dose Topical QPM Qty: 0 RF: 0 [id number] (VICKS VAPORUB) 1 OIN OIN 1 dose Topical BID PRN (Reason: PRN) Qty: 0 RF: 0 MAGNESIUM HYDROXIDE (MILK OF MAGNESIA) 30 ML suspension 30 ml PO DAILY PRN (Reason: PRN) Qty: 0 RF: 0 Oxycodone HCl 5 MG tablet 5 mg PO Q4H PRN (Reason: moderate pain (pain scale 4-6)) Qty: 30 RF: 0 Referrals Referrals: Katelin Blackmon [Primary Care Provider] - Discharge Problem: Bilateral pneumonia Qualifiers: Pneumonia type: due to unspecified organism Lung location: unspecified part of lung Qualified Code(s): J18.9 - Pneumonia, unspecified organism The scribe's documentation has been prepared under my direction and personally reviewed by me in its entirety. I confirm that the note above accurately refle cts all work, treatment, procedures, and medical decision making performed by me.
[2019-11-13 11:02] LABS: T4 Free Thyroxine 0.83 ng/dl (0.8-1.6)
[2019-11-13] MEDS ORDERED: ICU PROTOCOL FOR HYPERGLYCEMIA PRN (11:43)
[2019-11-13 11:57] LABS: iSTAT Allen Test Pass; iSTAT Art Bld Gas pCO2 Correct 59 mmHg (35-46); iSTAT Art Bld Gas pH Corrected 7.224 (7.35-7.45); iSTAT Arterial Blood Gas HCO3 25 meg/L (19-24); iSTAT Arterial Blood Gas pCO2 59 mmHg (35-46); iSTAT Arterial Blood Gas pH 7.22 (7.35-7.45); iSTAT Arterial Blood Gas pO2 71 mmHg (80-95); iSTAT Arterial Blood Gas pO2 C 71; iSTAT Carbon Dioxide 26 mmol/L (24-31); iSTAT FiO2 60 %; iSTAT Hematocrit 47 % (42-52); iSTAT Potassium 5.7 mmol/L (3.3-5.0); iSTAT Site R Radial; iSTAT Sodium 139 mmol/L (135-144)
[2019-11-13] MEDS ORDERED: PNEUMOCOCCAL POLYSACCHARIDES 25 MCG/0.5 ML VIAL/SYR IM ONE (13:02)
[2019-11-13] MEDS ORDERED: INFLUENZA VACCINE HIGH DOSE 65+ 0.5 ML SYR IM ONE (13:02)
[2019-11-13] MEDS ORDERED: PNEUMOCOCCAL ADMINISTRATION CHARGE ONE (13:02)
[2019-11-13] MEDS ORDERED: INFLUENZA ADMINISTRATION CHARGE ONE (13:02)
[2019-11-13 14:03] LABS: Hematocrit (blood only) 50.2 % (42-52); INR 1.5 (0.9-1.1); Mean Corpuscular Hemoglobin 28.6 pg (25-34); Mean Corpuscular Volume 89.6 fL (80-100); Mean Platelet Volume 12.1 fL (7.4-10.4); Platelet Count 180 K/uL (130-400); Prothrombin Time 14.8 Seconds (9.0-12.0); RDW Coefficient of Variation 13.9 % (11.5-14.5); RDW Standard Deviation 45.5 fL (36.4-46.3); White Blood Count 29.27 K/uL (4.8-10.8)
[2019-11-13 14:16] LABS: Mean Corpuscular Hgb Conc 31.9 g/dL (32-36)
[2019-11-13 14:20] LABS: BUN Creatinine Ratio 11.5 (10-20); Blood Urea Nitrogen 21 mg/dl (7-18); Carbon Dioxide 27 mmol/L (21-32); Chloride 103 mmol/L (98-107); Est GFR (African American) 42.6; Est GFR (Non-African American) 36.8; Glucose 278 mg/dl (70-99); Lipase 210 U/L (73-393); Magnesium 2.4 mg/dl (1.8-2.4); Potassium 4.6 mmol/L (3.5-5.1); Sodium 141 mmol/L (136-145)
[2019-11-13 14:26] LABS: Basophils # (auto) 0.03 K/uL (0-0.2); Basophils % (auto) 0.1 %; Eosinophils # (auto) 0.01 K/uL (0-0.5); Immature Granulocytes # (auto) 0.27 K/uL (0.00-0.02); Immature Granulocytes % (auto) 0.9 %; Lymphocytes # (auto) 2.23 K/uL (1.2-3.4); Lymphocytes % (auto) 7.6 %; Monocytes % (auto) 5.8 %; Neutrophils # (auto) 25.03 K/uL (1.4-6.5); Neutrophils % (auto) 85.6 %
[2019-11-13 14:35] LABS: Alanine Aminotransferase 111 U/L (12-78); Alkaline Phosphatase 109 U/L (45-117); Aspartate Aminotransferase 266 U/L (15-37); Bilirubin Direct 0.2 mg/dl (0-0.2); Bilirubin,Total 0.9 mg/dl (0.2-1); Phosphorus 6.6 mg/dl (2.5-4.9); Total Protein 5.9 gm/dl (6.4-8.2)
--- NOTE | 2019-11-13 15:34 | Procedure Note ---
Procedure Note Date of Service November 13, 2019 Note ARTERIAL LINE PROCEDURE NOTE: Procedure: Arterial Line Placement Attending: Dr. Koehler Provider: Arabella Hensley MD PGY-1 Indication: Monitoring on Pressors Anesthesia: Lidocaine 1% Line placed emergently post intubation, patient unable to cognitively give consent. A time-out was performed. Patient's name, procedure, indication, site, and equipment were verified. Patient's right wrist was prepped and draped in the usual sterile fashion. Providers were sterile throughout procedure. Ultrasound guidance was used to aid needle placement. A 20g Arrow arterial line was introduced into the left radial artery. After a flash was observed, the catheter was threaded and the needle was removed with appropriate blood return. Good waveform was observed on monitor. The patient tolerated the procedure well. Blood Loss: Minimal Complications: None Procedural Ultrasound Guidance Procedure Date: 11/13/2019 Indication: Arterial line insertion Attending: Dr. Koehler Provider: Arabella Hensley MD PGY-1 Artery Identified: Yes Line confirmed in Artery with ultrasound: Yes Complications: none Patient tolerated procedure: well Supervising Physician Co-Signing Physician Notes I was present and assisted with the entire procedure Coding Resident Activity Tracking Resident Involvement: Resident Care Provided Care Provided: Adult [facility]
--- NOTE | 2019-11-13 16:24 | Electroencephalogram ---
EEG Procedure Note Date of Service November 13, 2019 Start / End Times Start Time: 2:10 PM End Time: 2:30 PM Referring Physician Dwayne Koehler History Cardiac arrest Home Medication List Home Medications Medication Instructions Recorded Confirmed Type CARVEDILOL (COREG) 25 mg PO BID #0 tab 12/03/13 History Furosemide (Lasix) 40 mg PO QAM #0 tab 12/03/13 History ASPIRIN (ASPIRIN EC) 81 mg PO QAM #0 02/21/15 History ATORVASTATIN (LIPITOR) 10 mg PO QPM #0 tab 02/21/15 History Acetaminophen Tab (TYLENOL) 650 mg PO Q4 PRN #0 tab 02/21/15 History CAPTOPRIL (CAPOTEN) 50 mg PO TID #0 tab 02/21/15 History CHOLECALCIFEROL (VITAMIN D 1000 1,000 inter.unit PO QPM #0 cap 02/21/15 History UNIT) GABAPENTIN (NEURONTIN) 100 mg PO TID #0 cap 02/21/15 History Hydrocodone/Acetaminophen 1 tab PO Q6 PRN #0 tab 02/21/15 History 5MG/325MG ([place] 5MG/325MG) OXYCODONE/ACETAMINOPHEN 5MG/325MG 1 tab PO Q6H PRN #0 tab 02/21/15 History SENNOSIDES-DOCUSATE SODIUM (SENNA 2 tab PO Q12H #0 02/21/15 History S) [id number] (VICKS 1 dose TOPICAL BID PRN #0 03/17/15 History VAPORUB) DICLOFENAC SODIUM (TOPICAL) 1 dose TOPICAL TID #0 03/17/15 History (VOLTAREN 1% TOP GEL) DULCOLAX SUPP 1 supp RE PRN #0 03/17/15 History FLUTICASONE PROPIONATE (NASAL) 2 spry INTRANASAL HS #0 03/17/15 History (FLONASE) MAGNESIUM HYDROXIDE (MILK OF 30 ml PO DAILY PRN #0 ml 03/17/15 History MAGNESIA) STOMAHESIVE POWDER 1 dose TOPICAL QPM #0 03/17/15 History WARFARIN SODIUM (COUMADIN) 4 mg PO QPM #0 tab 03/17/15 History ZINC OXIDE 40% 1 dose TOPICAL QPM #0 03/17/15 History Oxycodone HCl 5 mg PO Q4H PRN #30 tab 04/05/15 Rx Inpatient Medication List Epinephrine HCl 8 mg/ Dextrose 258 mls @ 67.028 mls/hr IV .Q3H51M JACK; Protocol Stop: 12/13/19 12:59 Last Titration: 11/13/19 15:35 Dose: 0.4 mcg/kg/min, 67 mls/hr Documented by: [id number] Titration: 11/13/19 15:30 Dose: 0.41 mcg/kg/min, 68.7 mls/hr Documented by: [id number] Titration: 11/13/19 15:25 Dose: 0.42 mcg/kg/min, 70.4 mls/hr Documented by: [id number] Titration: 11/13/19 15:20 Dose: 0.43 mcg/kg/min, 72.1 mls/hr Documented by: [id number] Titration: 11/13/19 14:43 Dose: 0.44 mcg/kg/min, 73.7 mls/hr Documented by: [id number] Cosigned by: [id number] Admin: 11/13/19 13:47 Dose: 0.45 mcg/kg/min, 75.4 mls/hr Documented by: [id number] Cosigned by: [id number] Discontinued Medications Sodium Chloride (Nss 1000ml) 1,000 mls @ 999 mls/hr IV .Q1H1M JACK Stop: 11/13/19 10:00 Last Infusion: 11/13/19 10:15 Dose: 0 mls/hr Documented by: [id number] Admin: 11/13/19 09:15 Dose: 999 mls/hr Documented by: [id number] Epinephrine HCl 4 mg/ Dextrose 254 mls @ 161.674 mls/hr IV .Q1H35M JACK; Protocol Stop: 11/13/19 13:00 Last Titration: 11/13/19 14:08 Dose: 0 mcg/kg/min, 0 mls/hr Documented by: [id number] Admin: 11/13/19 14:06 Dose: Not Given Documented by: [id number] Titration: 11/13/19 13:34 Dose: 0.45 mcg/kg/min, 148.5 mls/hr Documented by: [id number] Titration: 11/13/19 13:20 Dose: 0.46 mcg/kg/min, 151.8 mls/hr Documented by: [id number] Titration: 11/13/19 13:07 Dose: 0.47 mcg/kg/min, 155.1 mls/hr Documented by: [id number] Titration: 11/13/19 12:49 Dose: 0.48 mcg/kg/min, 158.4 mls/hr Documented by: [id number] Titration: 11/13/19 12:35 Dose: 0.49 mcg/kg/min, 161.7 mls/hr Documented by: [id number] Admin: 11/13/19 12:22 Dose: 0.5 mcg/kg/min, 190.5 mls/hr Documented by: [id number] Cosigned by: [id number] Titration: 11/13/19 11:35 Dose: 0.5 mcg/kg/min, 190.5 mls/hr Documented by: [id number] Cosigned by: [id number] Admin: 11/13/19 10:15 Dose: 0.5 mcg/kg/min, 190.5 mls/hr Documented by: [id number] Cosigned by: [id number] Epinephrine HCl 2 mg/ Dextrose 252 mls @ 378 mls/hr IV .Q40M JACK; Protocol Stop: 11/13/19 10:45 Last Admin: 11/13/19 12:32 Dose: Not Given Documented by: [id number] Titration: 11/13/19 10:15 Dose: 0 mcg/kg/min, 0 mls/hr Documented by: [id number] Admin: 11/13/19 09:28 Dose: 0.5 mcg/kg/min, 378 mls/hr Documented by: [id number] Cosigned by: [id number] Calcium Chloride 1,000 mg/ (Sodium Chloride) 60 mls @ 240 mls/hr IV NOW STA Stop: 11/13/19 10:51 Last Infusion: 11/13/19 12:32 Dose: 0 mls/hr Documented by: [id number] Admin: 11/13/19 10:50 Dose: 240 mls/hr Documented by: [id number] Piperacillin Sod/Tazobactam (Sod 3.375 gm/ Dextrose) 100 ml in 115 mls @ 230 mls/hr IV NOW STA Stop: 11/13/19 11:13 Last Infusion: 11/13/19 12:33 Dose: 0 mls/hr Documented by: [id number] Admin: 11/13/19 10:58 Dose: 230 mls/hr Documented by: [id number] Miscellaneous () 1 ea N/A NOW STA Stop: 11/13/19 09:08 Last Admin: 11/13/19 12:32 Dose: 1 ea Documented by: [id number] Sodium Bicarbonate (Sodium Bicarbonate 8.4%) 50 meq IV NOW STA Stop: 11/13/19 10:41 Last Admin: 11/13/19 10:50 Dose: 50 meq Documented by: [id number] Description This is a 21 electrode EEG with a single channel dedicated to limited EKG. The electrodes were placed in accordance with the International 10-20 system. The background rhythm consists of a mix of 10 Hz alpha and 6 Hz theta frequencies. There is a symmetrical frontal beta rhythm. There is intermittent movement/ventilator artifact. There is no focal or lateralized slowing. No epileptiform abnormalities observed. Interpretation This is an abnormal awake/drowsy EEG revealing findings suggestive of a generalized nonspecific encephalopathy. There are no findings suggestive of seizure activity. Please correlate with patient's clinical status. [facility] EEG Procedure Codes Indication for Procedure (1) Cardiac arrest: (2) Cerebral anoxia: Neurology Neurology: 27830 EEG include record awake & drowsy
[2019-11-13] MEDS ORDERED: ACETAMINOPHEN 1,000 MG/100 ML VIAL IV PRN (16:41)
--- NOTE | 2019-11-13 17:41 | CT Scan Report ---
CT head/brain wo con CLINICAL HISTORY: 74 years-old Male with cardiac arrest. Acute cardiac arrest TECHNIQUE: Multiple axial CT images of the head were obtained without contrast. A dose lowering tech nique was utilized adhering to the principles of ALARA. CT DOSE: 1074.96 mGy.cm COMPARISON: Head CT 04/02/2015 FINDINGS: There is diffuse cerebral edema with loss of the haro-white differentiation involving the cerebral he mispheres and cerebellum. This results in effacement of the quadrigeminal plate cistern and near comp lete effacement of the fourth ventricle. Partial effacement of the sylvian cisterns. Heterogeneous ar eas of edema are noted within the cerebral hemispheres and occipital lobes. Hypodensities are noted w ithin the lentiform nuclei symmetrically. Low-lying cerebellar tonsils. Hyperdensity of the cerebral venous sinuses and tentorium. No definite acute intracranial hemorrhage, midline shift or hydrocephal us. No acute calvarial fracture. Completely opacified right maxillary sinus. Secretions of the nasopharyn x with moderate mucosal thickening of the ethmoid air cells and left maxillary sinus. Soft tissues an d orbits are unremarkable. IMPRESSION: 1. 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 This results in effacement of the quadrigeminal plate cistern and fourth ventricle w ith partial effacement of the suprasellar cistern. 2. Low-lying cerebellar tonsils are suspicious for developing tonsillar herniation. 3. No definite acute intracranial hemorrhage or midline shift. Findings were discussed with Dr. Koehler on 11/13/2019 at 5:32 PM ACT 112: Negative or not required by law. The above report was generated using voice recognition software. It may contain grammatical, syntax o r spelling errors. Electronically signed by: Slade Adames M.D. 11/13/2019 5:40 PM
[2019-11-13] MEDS ORDERED: MoRPHine SULFATE 2 MG/ML CARP IV PRN (18:00)
--- NOTE | 2019-11-13 18:05 | Critical Care Consultation ---
Date of Consultation November 13, 2019 History of Present Illness Attending Physician: Uday James MD Allergies Allergy/AdvReac Type Severity Reaction Status Date / Time No Known Allergies Allergy Unverified 11/13/19 09:34 Home Medications Home Medications Medication Instructions Recorded Confirmed Type CARVEDILOL (COREG) 25 mg PO BID #0 tab 12/03/13 History Furosemide (Lasix) 40 mg PO QAM #0 tab 12/03/13 History ASPIRIN (ASPIRIN EC) 81 mg PO QAM #0 02/21/15 History ATORVASTATIN (LIPITOR) 10 mg PO QPM #0 tab 02/21/15 History Acetaminophen Tab (TYLENOL) 650 mg PO Q4 PRN #0 tab 02/21/15 History CAPTOPRIL (CAPOTEN) 50 mg PO TID #0 tab 02/21/15 History CHOLECALCIFEROL (VITAMIN D 1000 1,000 inter.unit PO QPM #0 cap 02/21/15 History UNIT) GABAPENTIN (NEURONTIN) 100 mg PO TID #0 cap 02/21/15 History Hydrocodone/Acetaminophen 1 tab PO Q6 PRN #0 tab 02/21/15 History 5MG/325MG ([place] 5MG/325MG) OXYCODONE/ACETAMINOPHEN 5MG/325MG 1 tab PO Q6H PRN #0 tab 02/21/15 History SENNOSIDES-DOCUSATE SODIUM (SENNA 2 tab PO Q12H #0 02/21/15 History S) [id number] (VICKS 1 dose TOPICAL BID PRN #0 03/17/15 History VAPORUB) DICLOFENAC SODIUM (TOPICAL) 1 dose TOPICAL TID #0 03/17/15 History (VOLTAREN 1% TOP GEL) DULCOLAX SUPP 1 supp RE PRN #0 03/17/15 History FLUTICASONE PROPIONATE (NASAL) 2 spry INTRANASAL HS #0 03/17/15 History (FLONASE) MAGNESIUM HYDROXIDE (MILK OF 30 ml PO DAILY PRN #0 ml 03/17/15 History MAGNESIA) STOMAHESIVE POWDER 1 dose TOPICAL QPM #0 03/17/15 History WARFARIN SODIUM (COUMADIN) 4 mg PO QPM #0 tab 03/17/15 History ZINC OXIDE 40% 1 dose TOPICAL QPM #0 03/17/15 History Oxycodone HCl 5 mg PO Q4H PRN #30 tab 04/05/15 Rx Patient History Medical History (Updated 11/13/19 @ 18:03 by Dwayne Koehler, DO) CAD (coronary artery disease) Cervical spinal stenosis (Acute) COPD (chronic obstructive pulmonary disease) Dilated cardiomyopathy Essential hypertension Heart disease (Resolved) History of cardiac arrest 2001 History of prostate cancer ICD (implantable cardioverter-defibrillator) in place Left ventricular thrombus 2004 Surgical History No significant past surgical history Social History (Updated 11/13/19 @ 10:52 by Anna Wolf PA-C) Preferred Language: Omani Communication Ability: Unable Communication Ability Comment: intubated, unresponsive, unable to assess Beliefs That Will Affect Care: None marital status: / Current Living Situation: Alone Other Information That Helps Us Care for You: No Feels Safe at Home: Yes Smoking Status: Unknown if ever smoked Results & Data Vital Signs (Past 12 Hours) Vital Signs Temp Pulse Pulse Resp BP BP Pulse Ox 11/13/19 17:48 82 29 H 98 11/13/19 16:04 86 149/99 H 98 11/13/19 15:49 89 153/105 H 96 11/13/19 15:33 87 164/103 H 94 11/13/19 15:30 86 95 11/13/19 15:18 88 163/114 H 98 11/13/19 15:04 83 174/125 H 98 11/13/19 14:34 94 H 170/97 H 97 11/13/19 14:04 75 154/96 H 95 11/13/19 14:01 76 141/96 H 95 11/13/19 13:50 80 30 H 98 11/13/19 13:49 93 H 138/94 98 11/13/19 13:33 88 178/104 H 97 11/13/19 13:18 79 176/100 H 97 11/13/19 13:03 73 159/85 H 96 11/13/19 13:01 74 168/87 H 96 11/13/19 12:48 77 174/99 H 95 11/13/19 12:33 79 161/99 H 95 11/13/19 12:30 74 96 11/13/19 12:20 76 96 11/13/19 12:18 72 187/96 H 97 11/13/19 12:10 72 97 11/13/19 12:01 74 154/93 H 97 11/13/19 12:00 73 26 H 97 11/13/19 11:50 72 98 11/13/19 11:40 70 15 92 11/13/19 11:19 34.9 C L 71 30 H 100 11/13/19 11:00 75 22 163/100 H 100 11/13/19 10:24 70 30 H 115/77 100 11/13/19 10:12 70 30 H 120/87 100 11/13/19 10:06 16 11/13/19 10:04 89 30 H 100 11/13/19 10:01 71 100 11/13/19 10:00 70 30 H 107/82 98 11/13/19 09:51 71 30 H 101/66 99 11/13/19 09:40 87 40 H 137/87 87 L 11/13/19 09:37 91 H 12 179/101 H 88 L 11/13/19 09:07 97 H 17 179/109 H 79 L 11/13/19 08:58 100 H 16 153/104 H 11/13/19 08:51 81 149/98 H 11/13/19 08:48 87 30 H 95 Resident Activity Tracking Resident Involvement: Resident Care Provided Care Provided: Adult Hospital Medicine
--- NOTE | 2019-11-13 18:33 | Electrocardiogram Report ---
Test Reason : Blood Pressure : / mmHG Vent. Rate : 108 BPM Atrial Rate : 108 BPM P-R Int : 184 ms QRS Dur : 170 ms QT Int : 394 ms P-R-T Axes : -25 -75 128 degrees QTc Int : 527 ms Sinus tachycardia Left axis deviation Left bundle branch block Abnormal ECG When compared with ECG of 21-FEB-2015 13:51, Sinus rhythm has replaced Electronic atrial pacemaker Vent. rate has increased BY 38 BPM T wave inversion more evident in Lateral leads QT has lengthened Confirmed by Franck Evans ([id number]) on 11/13/2019 6:33:01 PM Referred By: REFERRED SELF Confirmed By:Mikhail Evans
--- NOTE | 2019-11-13 18:36 | Electrocardiogram Report ---
Test Reason : Blood Pressure : / mmHG Vent. Rate : 072 BPM Atrial Rate : 072 BPM P-R Int : 224 ms QRS Dur : 146 ms QT Int : 448 ms P-R-T Axes : 081 -80 143 degrees QTc Int : 490 ms Atrial-paced rhythm with prolonged AV conduction with Premature supraventricular complexes Left axis deviation Left bundle branch block Abnormal ECG When compared with ECG of 21-FEB-2015 13:51, Premature supraventricular complexes are now Present Nonspecific T wave abnormality now evident in Inferior leads T wave inversion less evident in Lateral leads Confirmed by Franck Evans ([id number]) on 11/13/2019 6:35:59 PM Referred By: REFERRED SELF Confirmed By:Mikhail Evans
[2019-11-13] MEDS ORDERED: MoRPHine SULF/NSS 250 MG/250 ML BTL IV SCH (19:00)
--- NOTE | 2019-11-13 19:09 | Billing Data ---
Date of Service November 13, 2019 Coding Level of Care Code Critical Care ea addt'l 30 min Comment Billing is also include arterial line right sided procedure GC modifier
[2019-11-13] MEDS ORDERED: SODIUM BICARB 8.4% INJ 50 MEQ/50 ML SYR IV ONE (19:16)
--- NOTE | 2019-11-13 19:19 | Critical Care Consultation ---
Date of Consultation November 13, 2019 Assessment & Plan (1) Herniation syndrome: Reason Critically Ill: 74-year-old male with status post cardiac arrest with return of spontaneous circulation PLAN: Neuro: Herniation syndrome -Impending Discussed therapeutic options to include therapeutic hypothermia -Family declined Resp: Acute hypoxic respiratory failure COPD -Avoid hyperoxia goal saturation 92-97 CV: Ischemic cardiomyopathy AICD in place Essential hypertension Cardiac arrest -Requiring epinephrine for perfusion Fluids/Renal: Acute kidney injury GI/Nutrition: Transaminitis -Likely shock liver Heme: Anemia DVT prophylaxis: Heparin 5000 twice daily Endocrine: Vascular access: Peripheral IVs Code Status: DNR, no escalation of care Disposition: After discussion with the patient's family they felt he would not want aggressive measures undertaken and would continue the current level of care allowing a son from [place] to come to the bedside. After obtaining a head CT which demonstrated impending herniation syndrome and the worsening labs family was all in agreement with proceeding with terminal extubation and comfort measures and allowing natural dying process to proceed. Patient was started on morphine and terminally extubated. After discontinuing vasopressors the patient at 191. (2) Cerebral anoxia: (3) Elevated troponin: (4) ICD (implantable cardioverter-defibrillator) in place: (5) COPD (chronic obstructive pulmonary disease): (6) Essential hypertension: (7) CAD (coronary artery disease): (8) Dilated cardiomyopathy: (9) Cardiac arrest: History of Present Illness Reason for Consultation: Cardiac arrest Requesting Physician: Gasper Lau DO Attending Physician: Uday James MD History of Present Illness History is obtained from prior records and family members secondary to patient being intubated. Patient has significant past medical history of significant coronary artery disease with reduced ejection fraction, dilated cardiomyopathy, history of arrhythmia requiring AICD and pacer placement. The family reports that the patient has lost his in the last several months and has been rather downtrodden. He is a fiercely independent person who would not want to be attached to machines nor live in a jail facility. The patient's son reports that the patient called him with difficulty breathing, his son advised him to activate his medical alert. Promptly after that it sounded as if the patient dropped the phone. The patient's son called 911 and subsequent to that the life [employer] contacted the patient's son to notify him that there was a life alert activation. They proceeded promptly to the patient's residence, by the time they got there EMS was already resuscitating the patient had a breathing tube in and was performing CPR. They reported that they had been performing CPR for at least 20 minutes, another 40 minutes passed after the family's arrival and as EMS was about to stop further resuscitative efforts the patient did regain spontaneous circulation. He was transported to [facility] in emergency department again law spontaneous circulation, a similar episode occurred where all resuscitative efforts were going to be discontinued, the patient was on an epinephrine infusion during this time and he did have return of spontaneous circulation. He was transferred to the ICU for further evaluation and management. In discussion with the family he has 5 children 1 son had passed, one son lives locally with 1 daughter and another son in [place] is estranged and there is another daughter who is also has an estranged relationship. He does not have a medical power of managing attorney, there is a [place] of the living children and are all were in agreement with treatment plan. In discussing prognosis of likely signif icant brain injury in the setting of having a prolonged cardiac arrest requiring CPR they felt he would not want additional heroic measures undertaken in event of cardiac arrest. Allergies Allergy/AdvReac Type Severity Reaction Status Date / Time No Known Allergies Allergy Unverified 11/13/19 09:34 Home Medications Home Medications Medication Instructions Recorded Confirmed Type CARVEDILOL (COREG) 25 mg PO BID #0 tab 12/03/13 History Furosemide (Lasix) 40 mg PO QAM #0 tab 12/03/13 History ASPIRIN (ASPIRIN EC) 81 mg PO QAM #0 02/21/15 History ATORVASTATIN (LIPITOR) 10 mg PO QPM #0 tab 02/21/15 History Acetaminophen Tab (TYLENOL) 650 mg PO Q4 PRN #0 tab 02/21/15 History CAPTOPRIL (CAPOTEN) 50 mg PO TID #0 tab 02/21/15 History CHOLECALCIFEROL (VITAMIN D 1000 1,000 inter.unit PO QPM #0 cap 02/21/15 History UNIT) GABAPENTIN (NEURONTIN) 100 mg PO TID #0 cap 02/21/15 History Hydrocodone/Acetaminophen 1 tab PO Q6 PRN #0 tab 02/21/15 History 5MG/325MG ([place] 5MG/325MG) OXYCODONE/ACETAMINOPHEN 5MG/325MG 1 tab PO Q6H PRN #0 tab 02/21/15 History SENNOSIDES-DOCUSATE SODIUM (SENNA 2 tab PO Q12H #0 02/21/15 History S) [id number] (VICKS 1 dose TOPICAL BID PRN #0 03/17/15 History VAPORUB) DICLOFENAC SODIUM (TOPICAL) 1 dose TOPICAL TID #0 03/17/15 History (VOLTAREN 1% TOP GEL) DULCOLAX SUPP 1 supp RE PRN #0 03/17/15 History FLUTICASONE PROPIONATE (NASAL) 2 spry INTRANASAL HS #0 03/17/15 History (FLONASE) MAGNESIUM HYDROXIDE (MILK OF 30 ml PO DAILY PRN #0 ml 03/17/15 History MAGNESIA) STOMAHESIVE POWDER 1 dose TOPICAL QPM #0 03/17/15 History WARFARIN SODIUM (COUMADIN) 4 mg PO QPM #0 tab 03/17/15 History ZINC OXIDE 40% 1 dose TOPICAL QPM #0 03/17/15 History Oxycodone HCl 5 mg PO Q4H PRN #30 tab 04/05/15 Rx Patient History Medical History CAD (coronary artery disease) Cervical spinal stenosis (Acute) COPD (chronic obstructive pulmonary disease) Dilated cardiomyopathy Essential hypertension Heart disease (Resolved) History of cardiac arrest 2001 History of prostate cancer ICD (implantable cardioverter-defibrillator) in place Left ventricular thrombus 2004 Surgical History No significant past surgical history Social History Preferred Language: Chadian Communication Ability: Unable Communication Ability Comment: intubated, unresponsive, unable to assess Beliefs That Will Affect Care: None marital status: / Current Living Situation: Alone Other Information That Helps Us Care for You: No Feels Safe at Home: Yes Smoking Status: Unknown if ever smoked Review of Systems Review of Systems: Unobtainable due to endotracheal tube Physical Exam Physical Exam: General: Elderly male appears his stated age I have reviewed the recorded vital signs Neurological: RASS score: -4, pupils sluggishly reactive, no response to pain, no cough with suctioning, no gag Psychological: Glascow Coma Scale: Eyes: 1, Verbal 1T, Motor 1, Total 3T not following any commands Eyes: Pupils are equal, round and very sluggishly reactive to light, anicteric sclera. Symmetrical lids. HENT: Oropharynx is secured by endotracheal tube, moist Mucous Membranes. Neck: Supple. Symmetric. trachea midline. No thyromegaly. Cardiovascular: Delayed capillary refill. Weak femoral pulses intact. No JVD. Respiratory: Coarse breath sounds bilaterally, breath sounds equal Gastrointestinal: Soft. Non-distended. Lymphatic: No cervical lymphadenopathy. Musculoskeletal: No deformity. No clubbing nor cyanosis. Results & Data ([facility]) Vital Signs (Past 12 Hours) Vital Signs Temp Pulse Pulse Resp BP BP Pulse Ox 11/13/19 17:48 82 29 H 98 11/13/19 16:04 86 149/99 H 98 11/13/19 15:49 89 153/105 H 96 11/13/19 15:33 87 164/103 H 94 11/13/19 15:30 86 95 11/13/19 15:18 88 163/114 H 98 11/13/19 15:04 83 174/125 H 98 11/13/19 14:34 94 H 170/97 H 97 11/13/19 14:04 75 154/96 H 95 11/13/19 14:01 76 141/96 H 95 11/13/19 13:50 80 30 H 98 11/13/19 13:49 93 H 138/94 98 11/13/19 13:33 88 178/104 H 97 11/13/19 13:18 79 176/100 H 97 11/13/19 13:03 73 159/85 H 96 11/13/19 13:01 74 168/87 H 96 11/13/19 12:48 77 174/99 H 95 11/13/19 12:33 79 161/99 H 95 11/13/19 12:30 74 96 11/13/19 12:20 76 96 11/13/19 12:18 72 187/96 H 97 11/13/19 12:10 72 97 11/13/19 12:01 74 154/93 H 97 11/13/19 12:00 73 26 H 97 11/13/19 11:50 72 98 11/13/19 11:40 70 15 92 11/13/19 11:19 34.9 C L 71 30 H 100 11/13/19 11:00 75 22 163/100 H 100 11/13/19 10:24 70 30 H 115/77 100 11/13/19 10:12 70 30 H 120/87 100 11/13/19 10:06 16 11/13/19 10:04 89 30 H 100 11/13/19 10:01 71 100 11/13/19 10:00 70 30 H 107/82 98 11/13/19 09:51 71 30 H 101/66 99 11/13/19 09:40 87 40 H 137/87 87 L 11/13/19 09:37 91 H 12 179/101 H 88 L 11/13/19 09:07 97 H 17 179/109 H 79 L 11/13/19 08:58 100 H 16 153/104 H 11/13/19 08:51 81 149/98 H 11/13/19 08:48 87 30 H 95 Laboratory Results 11/13/19 11/13/19 11/13/19 Range/Units 13:46 13:46 13:46 WBC (4.8-10.8) K/uL RBC (4.7-6.1) M/uL Hgb (14.0-18.0) g/dL POC Hgb (14.0-18.0) g/dl Hct (42-52) % POC Hct (42-52) % MCV (80-100) fL MCH (25-34) pg MCHC (32-36) g/dL RDW Std Deviation (36.4-46.3) fL RDW Coeff of Meenakshi (11.5-14.5) % Plt Count (130-400) K/uL MPV (7.4-10.4) fL Immature Gran % (Auto) % Neut % (Auto) % Lymph % (Auto) % [place] % (Auto) % Eos % (Auto) % Baso % (Auto) % Immature Gran # (Auto) (0.00-0.02) K/uL Neut # (Auto) (1.4-6.5) K/uL Lymph # (Auto) (1.2-3.4) K/uL [place] # (Auto) (0.11-0.59) K/uL Eos # (Auto) (0-0.5) K/uL Baso # (Auto) (0-0.2) K/uL Absolute Nucleated RBC (0-0) K/uL Nucleated RBC % (auto) % Platelet Estimate (Normal) PT INR Sample Site POC pH (7.35-7.45) POC pCO2 (35-46) mmHg POC pO2 (80-95) mmHg POC HCO3 (19-24) albert/L POC Total CO2 (24-31) mmol/L POC Base Excess (-9-1.8) albert/L ABG pH (Temp Correct) (7.35-7.45) ABG pCO2 (Temp Corrct (35-46) mmHg POC ABG pO2 at Pt Temp [place] Test O2 Delivery Device POC O2 Rate Minute Ventilation POC FiO2 % Tidal Volume PEEP POC Sodium (135-144) mmol/L Sodium 141 POC Potassium (3.3-5.0) mmol/L Potassium 4.6 D Chloride 103 Carbon Dioxide 27 Anion Gap 11.0 BUN 21 H Creatinine 1.79 H POC Creatinine (0.6-1.3) mg/dl Est Cr Clr Drug Dosing Not Reportable Est GFR ( Amer) 42.6 Est GFR (Non-Af Amer) 36.8 BUN/Creatinine Ratio 11.5 Glucose 278 H POC Glucose (other) (70-99) mg/dl Lactate Calcium 8.0 L Ionized Calcium 1.03 L (1.12-1.32) mmol/L Phosphorus 6.6 H (2.5-4.9) mg/dl Magnesium 2.4 Total Bilirubin 0.9 Cancelled Direct Bilirubin 0.2 Cancelled AST 266 H Cancelled ALT 111 H Cancelled Alkaline Phosphatase 109 Cancelled Total Creatine Kinase Troponin I 49.800 H* Total Protein 5.9 L Cancelled Albumin 3.0 L Cancelled Globulin Albumin/Globulin Ratio Lipase 210 (73-393) U/L TSH Free T4 (0.8-1.6) ng/dl Specimen Hemolysis Urine Color Urine Appearance (Clear) Urine pH (4.5-7.5) Ur Specific [place] (1.000-1.030) Urine Protein (Negative) Urine Glucose (UA) (Negative) Urine Ketones (Negative) Urine Blood (Negative) Urine Nitrite (Negative) Urine Bilirubin (Negative) Urine Urobilinogen (Negative) Ur Leukocyte Esterase (Negative) Urine WBC (Auto) (0-5) /hpf Urine RBC (Auto) (0-4) /hpf U Hyaline Cast (Auto) (0-5) /lpf U Epithel Cells (Auto) (0-5) /lpf Urine Bacteria (Auto) (Negative) Urine Sperm (None Prsent) Nasal Screen MRSA (PCR) (Negative) Blood Type Antibody Screen 11/13/19 11/13/19 11/13/19 Range/Units 13:46 13:46 12:50 WBC 29.27 H D (4.8-10.8) K/uL RBC 5.60 (4.7-6.1) M/uL Hgb 16.0 (14.0-18.0) g/dL POC Hgb (14.0-18.0) g/dl Hct 50.2 (42-52) % POC Hct (42-52) % MCV 89.6 (80-100) fL MCH 28.6 (25-34) pg MCHC 31.9 L (32-36) g/dL RDW Std Deviation 45.5 (36.4-46.3) fL RDW Coeff of Meenakshi 13.9 (11.5-14.5) % Plt Count 180 (130-400) K/uL MPV 12.1 H (7.4-10.4) fL Immature Gran % (Auto) 0.9 % Neut % (Auto) 85.6 % Lymph % (Auto) 7.6 % [place] % (Auto) 5.8 % Eos % (Auto) 0.0 % Baso % (Auto) 0.1 % Immature Gran # (Auto) 0.27 H (0.00-0.02) K/uL Neut # (Auto) 25.03 H (1.4-6.5) K/uL Lymph # (Auto) 2.23 (1.2-3.4) K/uL [place] # (Auto) 1.70 H (0.11-0.59) K/uL Eos # (Auto) 0.01 (0-0.5) K/uL Baso # (Auto) 0.03 (0-0.2) K/uL Absolute Nucleated RBC (0-0) K/uL Nucleated RBC % (auto) % Platelet Estimate (Normal) PT 14.8 H INR 1.5 H Sample Site POC pH (7.35-7.45) POC pCO2 (35-46) mmHg POC pO2 (80-95) mmHg POC HCO3 (19-24) albert/L POC Total CO2 (24-31) mmol/L POC Base Excess (-9-1.8) albert/L ABG pH (Temp Correct) (7.35-7.45) ABG pCO2 (Temp Corrct (35-46) mmHg POC ABG pO2 at Pt Temp [place] Test O2 Delivery Device POC O2 Rate Minute Ventilation POC FiO2 % Tidal Volume PEEP POC Sodium (135-144) mmol/L Sodium POC Potassium (3.3-5.0) mmol/L Potassium Chloride Carbon Dioxide Anion Gap BUN Creatinine POC Creatinine (0.6-1.3) mg/dl Est Cr Clr Drug Dosing Est GFR ( Amer) Est GFR (Non-Af Amer) BUN/Creatinine Ratio Glucose POC Glucose (other) 284 H (70-99) mg/dl Lactate Calcium Ionized Calcium (1.12-1.32) mmol/L Phosphorus (2.5-4.9) mg/dl Magnesium Total Bilirubin Direct Bilirubin AST ALT Alkaline Phosphatase Total Creatine Kinase Troponin I Total Protein Albumin Globulin Albumin/Globulin Ratio Lipase (73-393) U/L TSH Free T4 (0.8-1.6) ng/dl Specimen Hemolysis Urine Color Urine Appearance (Clear) Urine pH (4.5-7.5) Ur Specific [place] (1.000-1.030) Urine Protein (Negative) Urine Glucose (UA) (Negative) Urine Ketones (Negative) Urine Blood (Negative) Urine Nitrite (Negative) Urine Bilirubin (Negative) Urine Urobilinogen (Negative) Ur Leukocyte Esterase (Negative) Urine WBC (Auto) (0-5) /hpf Urine RBC (Auto) (0-4) /hpf U Hyaline Cast (Auto) (0-5) /lpf U Epithel Cells (Auto) (0-5) /lpf Urine Bacteria (Auto) (Negative) Urine Sperm (None Prsent) Nasal Screen MRSA (PCR) (Negative) Blood Type Antibody Screen 11/13/19 11/13/19 11/13/19 Range/Units 11:55 11:50 11:43 WBC (4.8-10.8) K/uL RBC (4.7-6.1) M/uL Hgb (14.0-18.0) g/dL POC Hgb 16.0 (14.0-18.0) g/dl Hct (42-52) % POC Hct 47 (42-52) % MCV (80-100) fL MCH (25-34) pg MCHC (32-36) g/dL RDW Std Deviation (36.4-46.3) fL RDW Coeff of Meenakshi (11.5-14.5) % Plt Count (130-400) K/uL MPV (7.4-10.4) fL Immature Gran % (Auto) % Neut % (Auto) % Lymph % (Auto) % [place] % (Auto) % Eos % (Auto) % Baso % (Auto) % Immature Gran # (Auto) (0.00-0.02) K/uL Neut # (Auto) (1.4-6.5) K/uL Lymph # (Auto) (1.2-3.4) K/uL [place] # (Auto) (0.11-0.59) K/uL Eos # (Auto) (0-0.5) K/uL Baso # (Auto) (0-0.2) K/uL Absolute Nucleated RBC (0-0) K/uL Nucleated RBC % (auto) % Platelet Estimate (Normal) PT INR Sample Site R Radial POC pH 7.22 L (7.35-7.45) POC pCO2 59 H (35-46) mmHg POC pO2 71 L (80-95) mmHg POC HCO3 25 H (19-24) albert/L POC Total CO2 26 (24-31) mmol/L POC Base Excess -3.0 (-9-1.8) albert/L ABG pH (Temp Correct) 7.224 L (7.35-7.45) ABG pCO2 (Temp Corrct 59 H (35-46) mmHg POC ABG pO2 at Pt Temp 71 [place] Test Pass O2 Delivery Device Ventilator POC O2 Rate 24 Minute Ventilation 14 POC FiO2 60 % Tidal Volume 500 PEEP 6 POC Sodium 139 (135-144) mmol/L Sodium POC Potassium 5.7 H (3.3-5.0) mmol/L Potassium Chloride Carbon Dioxide Anion Gap BUN Creatinine POC Creatinine (0.6-1.3) mg/dl Est Cr Clr Drug Dosing Est GFR ( Amer) Est GFR (Non-Af Amer) BUN/Creatinine Ratio Glucose POC Glucose (other) (70-99) mg/dl Lactate 5.3 H* Calcium Ionized Calcium (1.12-1.32) mmol/L Phosphorus (2.5-4.9) mg/dl Magnesium Total Bilirubin Direct Bilirubin AST ALT Alkaline Phosphatase Total Creatine Kinase Troponin I Total Protein Albumin Globulin Albumin/Globulin Ratio Lipase (73-393) U/L TSH Free T4 (0.8-1.6) ng/dl Specimen Hemolysis Urine Color Urine Appearance (Clear) Urine pH (4.5-7.5) Ur Specific [place] (1.000-1.030) Urine Protein (Negative) Urine Glucose (UA) (Negative) Urine Ketones (Negative) Urine Blood (Negative) Urine Nitrite (Negative) Urine Bilirubin (Negative) Urine Urobilinogen (Negative) Ur Leukocyte Esterase (Negative) Urine WBC (Auto) (0-5) /hpf Urine RBC (Auto) (0-4) /hpf U Hyaline Cast (Auto) (0-5) /lpf U Epithel Cells (Auto) (0-5) /lpf Urine Bacteria (Auto) (Negative) Urine Sperm (None Prsent) Nasal Screen MRSA (PCR) Negative (Negative) Blood Type Antibody Screen 11/13/19 11/13/19 11/13/19 Range/Units 09:56 09:55 09:55 WBC (4.8-10.8) K/uL RBC (4.7-6.1) M/uL Hgb (14.0-18.0) g/dL POC Hgb 15.3 (14.0-18.0) g/dl Hct (42-52) % POC Hct 45 (42-52) % MCV (80-100) fL MCH (25-34) pg MCHC (32-36) g/dL RDW Std Deviation (36.4-46.3) fL RDW Coeff of Meenakshi (11.5-14.5) % Plt Count (130-400) K/uL MPV (7.4-10.4) fL Immature Gran % (Auto) % Neut % (Auto) % Lymph % (Auto) % [place] % (Auto) % Eos % (Auto) % Baso % (Auto) % Immature Gran # (Auto) (0.00-0.02) K/uL Neut # (Auto) (1.4-6.5) K/uL Lymph # (Auto) (1.2-3.4) K/uL [place] # (Auto) (0.11-0.59) K/uL Eos # (Auto) (0-0.5) K/uL Baso # (Auto) (0-0.2) K/uL Absolute Nucleated RBC (0-0) K/uL Nucleated RBC % (auto) % Platelet Estimate (Normal) PT 15.6 H INR 1.6 H Sample Site POC pH 7.20 L (7.35-7.45) POC pCO2 52 H (35-46) mmHg POC pO2 243 H (80-95) mmHg POC HCO3 20 (19-24) albert/L POC Total CO2 22 L (24-31) mmol/L POC Base Excess -8.0 (-9-1.8) albert/L ABG pH (Temp Correct) (7.35-7.45) ABG pCO2 (Temp Corrct (35-46) mmHg POC ABG pO2 at Pt Temp [place] Test O2 Delivery Device POC O2 Rate Minute Ventilation POC FiO2 % Tidal Volume PEEP POC Sodium 135 (135-144) mmol/L Sodium POC Potassium 7.2 H* (3.3-5.0) mmol/L Potassium Chloride Carbon Dioxide Anion Gap BUN Creatinine POC Creatinine (0.6-1.3) mg/dl Est Cr Clr Drug Dosing Est GFR ( Amer) Est GFR (Non-Af Amer) BUN/Creatinine Ratio Glucose POC Glucose (other) (70-99) mg/dl Lactate 9.3 H* Calcium Ionized Calcium (1.12-1.32) mmol/L Phosphorus (2.5-4.9) mg/dl Magnesium Total Bilirubin Direct Bilirubin AST ALT Alkaline Phosphatase Total Creatine Kinase Troponin I Total Protein Albumin Globulin Albumin/Globulin Ratio Lipase (73-393) U/L TSH Free T4 (0.8-1.6) ng/dl Specimen Hemolysis Urine Color Urine Appearance (Clear) Urine pH (4.5-7.5) Ur Specific [place] (1.000-1.030) Urine Protein (Negative) Urine Glucose (UA) (Negative) Urine Ketones (Negative) Urine Blood (Negative) Urine Nitrite (Negative) Urine Bilirubin (Negative) Urine Urobilinogen (Negative) Ur Leukocyte Esterase (Negative) Urine WBC (Auto) (0-5) /hpf Urine RBC (Auto) (0-4) /hpf U Hyaline Cast (Auto) (0-5) /lpf U Epithel Cells (Auto) (0-5) /lpf Urine Bacteria (Auto) (Negative) Urine Sperm (None Prsent) Nasal Screen MRSA (PCR) (Negative) Blood Type Antibody Screen 11/13/19 11/13/19 11/13/19 Range/Units 09:55 09:51 09:30 WBC (4.8-10.8) K/uL RBC (4.7-6.1) M/uL Hgb (14.0-18.0) g/dL POC Hgb (14.0-18.0) g/dl Hct (42-52) % POC Hct (42-52) % MCV (80-100) fL MCH (25-34) pg MCHC (32-36) g/dL RDW Std Deviation (36.4-46.3) fL RDW Coeff of Meenakshi (11.5-14.5) % Plt Count (130-400) K/uL MPV (7.4-10.4) fL Immature Gran % (Auto) % Neut % (Auto) % Lymph % (Auto) % [place] % (Auto) % Eos % (Auto) % Baso % (Auto) % Immature Gran # (Auto) (0.00-0.02) K/uL Neut # (Auto) (1.4-6.5) K/uL Lymph # (Auto) (1.2-3.4) K/uL [place] # (Auto) (0.11-0.59) K/uL Eos # (Auto) (0-0.5) K/uL Baso # (Auto) (0-0.2) K/uL Absolute Nucleated RBC (0-0) K/uL Nucleated RBC % (auto) % Platelet Estimate (Normal) PT INR Sample Site POC pH (7.35-7.45) POC pCO2 (35-46) mmHg POC pO2 (80-95) mmHg POC HCO3 (19-24) albert/L POC Total CO2 (24-31) mmol/L POC Base Excess (-9-1.8) albert/L ABG pH (Temp Correct) (7.35-7.45) ABG pCO2 (Temp Corrct (35-46) mmHg POC ABG pO2 at Pt Temp [place] Test O2 Delivery Device POC O2 Rate Minute Ventilation POC FiO2 % Tidal Volume PEEP POC Sodium (135-144) mmol/L Sodium 140 POC Potassium (3.3-5.0) mmol/L Potassium 6.5 H* Chloride 106 Carbon Dioxide 24 Anion Gap 10.0 BUN 16 Creatinine 1.63 H POC Creatinine 1.5 H (0.6-1.3) mg/dl Est Cr Clr Drug Dosing Not Reportable Est GFR ( Amer) 47.7 Est GFR (Non-Af Amer) 41.2 BUN/Creatinine Ratio 10.0 Glucose 288 H POC Glucose (other) (70-99) mg/dl Lactate Calcium 7.2 L Ionized Calcium (1.12-1.32) mmol/L Phosphorus (2.5-4.9) mg/dl Magnesium 2.5 H Total Bilirubin 0.7 Direct Bilirubin AST 112 H ALT 78 Alkaline Phosphatase 95 Total Creatine Kinase 817 H Troponin I 8.920 H* Total Protein 5.3 L Albumin 2.5 L Globulin 2.8 Albumin/Globulin Ratio 0.9 Lipase (73-393) U/L TSH 13.000 H Free T4 0.83 (0.8-1.6) ng/dl Specimen Hemolysis Urine Color Yellow Urine Appearance Turbid A (Clear) Urine pH 6.0 (4.5-7.5) Ur Specific [place] 1.014 (1.000-1.030) Urine Protein 1+ H (Negative) Urine Glucose (UA) Negative (Negative) Urine Ketones Negative (Negative) Urine Blood Trace H (Negative) Urine Nitrite Negative (Negative) Urine Bilirubin Negative (Negative) Urine Urobilinogen Negative (Negative) Ur Leukocyte Esterase Negative (Negative) Urine WBC (Auto) 10-30 H (0-5) /hpf Urine RBC (Auto) 0-4 (0-4) /hpf U Hyaline Cast (Auto) 1-5 (0-5) /lpf U Epithel Cells (Auto) >30 H (0-5) /lpf Urine Bacteria (Auto) 2+ H (Negative) Urine Sperm Present A (None Prsent) Nasal Screen MRSA (PCR) (Negative) Blood Type Antibody Screen 11/13/19 11/13/19 11/13/19 Range/Units 09:10 09:10 09:08 WBC (4.8-10.8) K/uL RBC (4.7-6.1) M/uL Hgb (14.0-18.0) g/dL POC Hgb 15.0 (14.0-18.0) g/dl Hct (42-52) % POC Hct 44 (42-52) % MCV (80-100) fL MCH (25-34) pg MCHC (32-36) g/dL RDW Std Deviation (36.4-46.3) fL RDW Coeff of Meenakshi (11.5-14.5) % Plt Count (130-400) K/uL MPV (7.4-10.4) fL Immature Gran % (Auto) % Neut % (Auto) % Lymph % (Auto) % [place] % (Auto) % Eos % (Auto) % Baso % (Auto) % Immature Gran # (Auto) (0.00-0.02) K/uL Neut # (Auto) (1.4-6.5) K/uL Lymph # (Auto) (1.2-3.4) K/uL [place] # (Auto) (0.11-0.59) K/uL Eos # (Auto) (0-0.5) K/uL Baso # (Auto) (0-0.2) K/uL Absolute Nucleated RBC (0-0) K/uL Nucleated RBC % (auto) % Platelet Estimate (Normal) PT INR Sample Site POC pH 7.02 L* (7.35-7.45) POC pCO2 111 H (35-46) mmHg POC pO2 63 L (80-95) mmHg POC HCO3 28 H (19-24) albert/L POC Total CO2 32 H (24-31) mmol/L POC Base Excess -3.0 (-9-1.8) albert/L ABG pH (Temp Correct) (7.35-7.45) ABG pCO2 (Temp Corrct (35-46) mmHg POC ABG pO2 at Pt Temp [place] Test O2 Delivery Device POC O2 Rate Minute Ventilation POC FiO2 % Tidal Volume PEEP POC Sodium 146 H (135-144) mmol/L Sodium POC Potassium 5.5 H (3.3-5.0) mmol/L Potassium Chloride Carbon Dioxide Anion Gap BUN Creatinine POC Creatinine (0.6-1.3) mg/dl Est Cr Clr Drug Dosing Est GFR ( Amer) Est GFR (Non-Af Amer) BUN/Creatinine Ratio Glucose POC Glucose (other) (70-99) mg/dl Lactate Cancelled Calcium Ionized Calcium (1.12-1.32) mmol/L Phosphorus (2.5-4.9) mg/dl Magnesium Total Bilirubin Direct Bilirubin AST ALT Alkaline Phosphatase Total Creatine Kinase Troponin I Total Protein Albumin Globulin Albumin/Globulin Ratio Lipase (73-393) U/L TSH Free T4 (0.8-1.6) ng/dl Specimen Hemolysis Urine Color Urine Appearance (Clear) Urine pH (4.5-7.5) Ur Specific [place] (1.000-1.030) Urine Protein (Negative) Urine Glucose (UA) (Negative) Urine Ketones (Negative) Urine Blood (Negative) Urine Nitrite (Negative) Urine Bilirubin (Negative) Urine Urobilinogen (Negative) Ur Leukocyte Esterase (Negative) Urine WBC (Auto) (0-5) /hpf Urine RBC (Auto) (0-4) /hpf U Hyaline Cast (Auto) (0-5) /lpf U Epithel Cells (Auto) (0-5) /lpf Urine Bacteria (Auto) (Negative) Urine Sperm (None Prsent) Nasal Screen MRSA (PCR) (Negative) Blood Type Cancelled Antibody Screen Cancelled 11/13/19 11/13/19 11/13/19 Range/Units 09:00 09:00 09:00 WBC 17.59 H (4.8-10.8) K/uL RBC 5.48 (4.7-6.1) M/uL Hgb 15.7 (14.0-18.0) g/dL POC Hgb (14.0-18.0) g/dl Hct 51.5 (42-52) % POC Hct (42-52) % MCV 94.0 (80-100) fL MCH 28.6 (25-34) pg MCHC 30.5 L (32-36) g/dL RDW Std Deviation 47.6 H (36.4-46.3) fL RDW Coeff of Meenakshi 13.8 (11.5-14.5) % Plt Count 151 (130-400) K/uL MPV 12.8 H (7.4-10.4) fL Immature Gran % (Auto) 6.7 % Neut % (Auto) 56.4 % Lymph % (Auto) 25.1 % [place] % (Auto) 9.9 % Eos % (Auto) 1.4 % Baso % (Auto) 0.5 % Immature Gran # (Auto) 1.17 H (0.00-0.02) K/uL Neut # (Auto) 9.94 H (1.4-6.5) K/uL Lymph # (Auto) 4.42 H (1.2-3.4) K/uL [place] # (Auto) 1.74 H (0.11-0.59) K/uL Eos # (Auto) 0.24 (0-0.5) K/uL Baso # (Auto) 0.08 (0-0.2) K/uL Absolute Nucleated RBC 0.07 H (0-0) K/uL Nucleated RBC % (auto) 0.4 % Platelet Estimate Decreased L (Normal) PT Cancelled INR Cancelled Sample Site POC pH (7.35-7.45) POC pCO2 (35-46) mmHg POC pO2 (80-95) mmHg POC HCO3 (19-24) albert/L POC Total CO2 (24-31) mmol/L POC Base Excess (-9-1.8) albert/L ABG pH (Temp Correct) (7.35-7.45) ABG pCO2 (Temp Corrct (35-46) mmHg POC ABG pO2 at Pt Temp [place] Test O2 Delivery Device POC O2 Rate Minute Ventilation POC FiO2 % [place] Volume PEEP POC Sodium (135-144) mmol/L Sodium Cancelled POC Potassium (3.3-5.0) mmol/L Potassium Cancelled Chloride Cancelled Carbon Dioxide Cancelled Anion Gap Cancelled BUN Cancelled Creatinine Cancelled POC Creatinine (0.6-1.3) mg/dl Est Cr Clr Drug Dosing Cancelled Est GFR ( Amer) Cancelled Est GFR (Non-Af Amer) Cancelled BUN/Creatinine Ratio Cancelled Glucose Cancelled POC Glucose (other) (70-99) mg/dl Lactate Calcium Cancelled Ionized Calcium (1.12-1.32) mmol/L Phosphorus (2.5-4.9) mg/dl Magnesium Cancelled Total Bilirubin Cancelled Direct Bilirubin AST Cancelled ALT Cancelled Alkaline Phosphatase Cancelled Total Creatine Kinase Cancelled Troponin I Cancelled Total Protein Cancelled Albumin Cancelled Globulin Cancelled Albumin/Globulin Ratio Cancelled Lipase (73-393) U/L TSH Cancelled Free T4 (0.8-1.6) ng/dl Specimen Hemolysis Urine Color Urine Appearance (Clear) Urine pH (4.5-7.5) Ur Specific [place] (1.000-1.030) Urine Protein (Negative) Urine Glucose (UA) (Negative) Urine Ketones (Negative) Urine Blood (Negative) Urine Nitrite (Negative) Urine Bilirubin (Negative) Urine Urobilinogen (Negative) Ur Leukocyte Esterase (Negative) Urine WBC (Auto) (0-5) /hpf Urine RBC (Auto) (0-4) /hpf U Hyaline Cast (Auto) (0-5) /lpf U Epithel Cells (Auto) (0-5) /lpf Urine Bacteria (Auto) (Negative) Urine Sperm (None Prsent) Nasal Screen MRSA (PCR) (Negative) Blood Type Antibody Screen Diagnostic Findings atient: ANA LOCKE Date: 11/13/19 MR#: [id number]: [address] [place] [address] Acct ID:[id number]: Date: [address] [place] [address] Zip: [place] [address] Age: 74Location: 1E Sex: M Room/Bed: [facility] Att Phy: Uday James M.D.Diagnosis: CARDIAC ARREST Lupis Phy: Katelin Blackmon M.D.Service Date: 11/13/19 Fam Phy:Interpreting Phy: Bran Adames Admit Phy: Uday James M.D. Ordering Phy: Dwayne Koehler D.O. cc: ~ CT head/brain wo con CLINICAL HISTORY: 74 years-old Male with cardiac arrest. Acute cardiac arrest TECHNIQUE: Multiple axial CT images of the head were obtained without contrast. A dose lowering technique was utilized adhering to the principles of ALARA. CT DOSE: 1074.96 mGy.cm COMPARISON: Head CT 04/02/2015 FINDINGS: There is diffuse cerebral edema with loss of the haro-white differentiation involving the cerebral hemispheres and cerebellum. This results in effacement of the quadrigeminal plate cistern and near complete effacement of the fourth ventricle. Partial effacement of the sylvian cisterns. Heterogeneous areas of edema are noted within the cerebral hemispheres and occipital lobes. Hypodensities are noted within the lentiform nuclei symmetrically. Low-lying cerebellar tonsils. Hyperdensity of the cerebral venous sinuses and tentorium. No definite acute intracranial hemorrhage, midline shift or hydrocephalus. No acute calvarial fracture. Completely opacified right maxillary sinus. Secretions of the nasopharynx with moderate mucosal thickening of the ethmoid air cells and left maxillary sinus. Soft tissues and orbits are unremarkable. IMPRESSION: 1. 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 This results in effacement of the quadrigeminal plate cistern and fourth ventricle with partial effacement of the suprasellar cistern. 2. Low-lying cerebellar tonsils are suspicious for developing tonsillar herniation. 3. No definite acute intracranial hemorrhage or midline shift. Findings were discussed with Dr. Koehler on 11/13/2019 at 5:32 PM ACT 112: Negative or not required by law. The above report was generated using voice recognition software. It may contain grammatical, syntax or spelling errors. Electronically signed by: Slade Adames M.D. 11/13/2019 5:40 PM I reviewed the echocardiogram with cardiology, significant reduction in EF despite vasoactive medication administration I reviewed the EEG report Medications Administered Epinephrine HCl 8 mg/ Dextrose 258 mls @ 50.271 mls/hr IV .Q5H8M [facility]; Protocol Stop: 12/13/19 12:59 Last Titration: 11/13/19 19:18 Dose: 0 mcg/kg/min, 0 mls/hr Documented by: [id number] Admin: 11/13/19 17:31 Dose: 0.3 mcg/kg/min, 50.3 mls/hr Documented by: [id number] Cosigned by: [id number] Titration: 11/13/19 17:31 Dose: 0.3 mcg/kg/min, 50.3 mls/hr Documented by: [id number] Cosigned by: [id number] Titration: 11/13/19 16:45 Dose: 0.3 mcg/kg/min, 50.3 mls/hr Documented by: [id number] Titration: 11/13/19 15:35 Dose: 0.4 mcg/kg/min, 67 mls/hr Documented by: [id number] Titration: 11/13/19 15:30 Dose: 0.41 mcg/kg/min, 68.7 mls/hr Documented by: [id number] Titration: 11/13/19 15:25 Dose: 0.42 mcg/kg/min, 70.4 mls/hr Documented by: [id number] Titration: 11/13/19 15:20 Dose: 0.43 mcg/kg/min, 72.1 mls/hr Documented by: [id number] Titration: 11/13/19 14:43 Dose: 0.44 mcg/kg/min, 73.7 mls/hr Documented by: [id number] Cosigned by: [id number] Admin: 11/13/19 13:47 Dose: 0.45 mcg/kg/min, 75.4 mls/hr Documented by: [id number] Cosigned by: [id number] Acetaminophen (Ofirmev) 1,000 mg in 100 mls @ 400 mls/hr IV Q8H PRN PRN Reason: Fever Stop: 11/16/19 16:40 Last Infusion: 11/13/19 17:41 Dose: 0 mls/hr Documented by: [id number] Admin: 11/13/19 16:52 Dose: 400 mls/hr Documented by: [id number] Morphine Sulfate (Morphine Sulf/Nss) 250 mg in 250 mls @ 1 mls/hr IV .Q24H JACK; Protocol Stop: 11/27/19 18:59 Last Titration: 11/13/19 19:18 Dose: 0 mg/hr, 0 mls/hr Documented by: [id number] Admin: 11/13/19 19:05 Dose: 1 mg/hr, 1 mls/hr Documented by: [id number] Cosigned by: [id number] Discontinued Medications Sodium Chloride (Nss 1000ml) 1,000 mls @ 999 mls/hr IV .Q1H1M JACK Stop: 11/13/19 10:00 Last Infusion: 11/13/19 10:15 Dose: 0 mls/hr Documented by: [id number] Admin: 11/13/19 09:15 Dose: 999 mls/hr Documented by: [id number] Epinephrine HCl 4 mg/ Dextrose 254 mls @ 161.674 mls/hr IV .Q1H35M JACK; Protocol Stop: 11/13/19 13:00 Last Titration: 11/13/19 14:08 Dose: 0 mcg/kg/min, 0 mls/hr Documented by: [id number] Admin: 11/13/19 14:06 Dose: Not Given Documented by: [id number] Titration: 11/13/19 13:34 Dose: 0.45 mcg/kg/min, 148.5 mls/hr Documented by: [id number] Titration: 11/13/19 13:20 Dose: 0.46 mcg/kg/min, 151.8 mls/hr Documented by: [id number] Titration: 11/13/19 13:07 Dose: 0.47 mcg/kg/min, 155.1 mls/hr Documented by: [id number] Titration: 11/13/19 12:49 Dose: 0.48 mcg/kg/min, 158.4 mls/hr Documented by: [id number] Titration: 11/13/19 12:35 Dose: 0.49 mcg/kg/min, 161.7 mls/hr Documented by: [id number] Admin: 11/13/19 12:22 Dose: 0.5 mcg/kg/min, 190.5 mls/hr Documented by: [id number] Cosigned by: [id number] Titration: 11/13/19 11:35 Dose: 0.5 mcg/kg/min, 190.5 mls/hr Documented by: [id number] Cosigned by: [id number] Admin: 11/13/19 10:15 Dose: 0.5 mcg/kg/min, 190.5 mls/hr Documented by: [id number] Cosigned by: [id number] Epinephrine HCl 2 mg/ Dextrose 252 mls @ 378 mls/hr IV .Q40M JACK; Protocol Stop: 11/13/19 10:45 Last Admin: 11/13/19 12:32 Dose: Not Given Documented by: [id number] Titration: 11/13/19 10:15 Dose: 0 mcg/kg/min, 0 mls/hr Documented by: [id number] Admin: 11/13/19 09:28 Dose: 0.5 mcg/kg/min, 378 mls/hr Documented by: [id number] Cosigned by: [id number] Calcium Chloride 1,000 mg/ (Sodium Chloride) 60 mls @ 240 mls/hr IV NOW STA Stop: 11/13/19 10:51 Last Infusion: 11/13/19 12:32 Dose: 0 mls/hr Documented by: [id number] Admin: 11/13/19 10:50 Dose: 240 mls/hr Documented by: [id number] Piperacillin Sod/Tazobactam (Sod 3.375 gm/ Dextrose) 100 ml in 115 mls @ 230 mls/hr IV NOW STA Stop: 11/13/19 11:13 Last Infusion: 11/13/19 12:33 Dose: 0 mls/hr Documented by: [id number] Admin: 11/13/19 10:58 Dose: 230 mls/hr Documented by: [id number] Influenza Virus Vaccine (Fluzone High-Dose Pf) 0.5 ml IM .ONCE ONE Stop: 11/13/19 13:03 Last Admin: 11/13/19 18:58 Dose: Not Given Documented by: [id number] Miscellaneous () 1 ea N/A NOW STA Stop: 11/13/19 09:08 Last Admin: 11/13/19 12:32 Dose: 1 ea Documented by: [id number] Pneumococcal Polyvalent Vaccine (Pneumovax-23) 25 mcg IM .ONCE ONE Stop: 11/13/19 13:03 Last Admin: 11/13/19 18:59 Dose: Not Given Documented by: [id number] Sodium Bicarbonate (Sodium Bicarbonate 8.4%) 50 meq IV NOW STA Stop: 11/13/19 10:41 Last Admin: 11/13/19 10:50 Dose: 50 meq Documented by: [id number] Coding Level of Care Code Critical Care ea addt'l 30 min Diagnoses Herniation syndrome G93.5 Cerebral anoxia G93.1 Elevated troponin R79.89 ICD (implantable cardioverter-defibrillator) in place Z95.810 COPD (chronic obstructive pulmonary disease) J44.9 Essential hypertension I10 CAD (coronary artery disease) I25.10 Dilated cardiomyopathy I42.0 Cardiac arrest I46.9 Time Spent (min) 95 Comment I have personally spent 95 minutes of critical care time in the direct management of this patient. This is a life/limb threatening event. This includes time spent evaluating patient, direct bedside care, chart review, placing orders, interpretation of diagnostic studies, discussion with consultants, patient, and/or family members regarding treatment decisions, as well as other required patient management activities. This time is exclusive of all separately billable procedures, and teaching time and separate from and in addition to any other critical care service time.
--- NOTE | 2019-11-13 19:20 | Death Summary ---
Date of Service November 13, 2019 Pronouncement Note Contributing Factors (1) Cardiac arrest: (2) Cerebral anoxia: Summary Additional details: PRONOUNCEMENT NOTE - Date: 11/13/2019 Time: 1916 I was contacted by nursing staff regarding the patients declining status and concerns for imminent demise. In short, Patient with cardiac arrest who recieved CPR for 60 min before achieving ROSC. Patient likely suffered large anoxic injury/ herniation syndrome. Family declined therapeutic hypothermia and opted to withdraw life sustaining measures and pursue comfort care. Assessment: I presented to the patients room for evaluation. Upon assessment, the patient was found to be in a terminal state. Pupils were fixed and dilated without response. No palpable pulses appreciated. No spontaneous breaths noted. Heart sounds were absent. No response to painful stimuli. Time of : 1916 as pronounced by myself and Dr. Dwayne Koehler. Patients primary service was contacted and made aware of patient demise. Pronouncement section of the Certificate was filled out and signed by myself. Cause of : Primary - Cardiac arrest Secondary - anoxic brain injury Please feel free to contact me with any questions regarding the above-mentioned course. Additional Data Attending physician: Uday James MD Coding Level of Care Code None Diagnoses Cardiac arrest I46.9 Cerebral anoxia G93.1
[2019-11-13] MEDS ORDERED: HEPARIN SOD 5,000 UNIT/0.5 ML VIAL SQ SCH (21:00)
--- NOTE | 2019-11-23 00:55 | Discharge Summary ---
Date of Service November 13, 2019 Admission HPI Per Admitting Provider This is a 74 y/o male with a complicated PMH including dilated cardiomyopathy, s/p ICD placement, respiratory cardiac arrest in 2001, CAD, HTN, NSVT, COPD, LV apical thrombus (2004), prostate cancer and cervical cord compression (2014) who presented to the ED today in cardiac arrest. History obtained from ED physician and family. Around 7 am today, pt called his son complaining of shortness of breath. Family encouraged him to hit his [place] alert button, which he did. Apparently, when EMS arrived, pt was found to be in full cardiac arrest and resuscitation were initiated at the scene. Pt was intubated in the field. Initially was not responding to measure but EMS was able to get a pulse back in the field so pt transported to the ED. Here in the ED, resuscitative measures were continued including multiple doses of epinephrine, lidocaine and bicarb per ED provider. After 2-3 hours of resuscitative efforts, pt was found to have a pulse and BP which is being maintained on epinephrine drip. Pt remains on ventilator. Admission Exam Per Admitting Provider Constitutional: + mechanically ventilated Eyes: + fixed pupils ENMT: ETT in place Respiratory: Auscultation: + rhonchi (throughout) Cardiovascular: regular rate and regular rhythm Gastrointestinal: Percussion/Palpation: abdomen soft Musculoskeletal: Extremities cool to touch Skin: prolonged cap refill, nail beds dusky Neurologic: No Babinski present, Does not respond to painful stimuli Principal Diagnosis Cardiac Arrest Cerebral anoxia Discharge Exam Pupils were fixed and dilated without response. No palpable pulses appreciated. No spontaneous breaths noted. Heart sounds were absent. No response to painful stimuli. Discharge Data Allergies Allergy/AdvReac Type Severity Reaction Status Date / Time No Known Allergies Allergy Unverified 11/13/19 09:34 Consultations 11/13/19 10:36 Consult Oncology Physician Routine 11/13/19 11:43 Consult Case Management - Discharge Planning Routine Ordered Studies 11/13/19 13:36 CT head/brain wo con Routine US point of care ultrasound Routine 11/13/19 13:37 US point of care ultrasound Routine XR chest 1V portable CLINICAL HISTORY: weakness dyspnea COMPARISON STUDY: 12/03/2013 FINDINGS: Interval development of a diffuse right upper lobe infiltrate. Less prominent interval left upper lobe infiltrate. Lower lungs are generally clear. Slight accentuation left basilar lung markings. Myocardial megaly. Postoperative changes to the low cervical and upper thoracic spine are noted. Endotracheal tube 2.5 cm above the demetria. IMPRESSION: 1. Interval development of diffuse right upper and to a lesser extent left upper lobe infiltrates. 2. Potential early interstitial infiltrative change left base. ACT 112: Negative or not required by law. The above report was generated using voice recognition software. It may contain grammatical, syntax or spelling errors. Electronically signed by: Marcio Mack M.D. 11/13/2019 10:10 AM Dictated: 11/13/19 1009 Transcribed: 11/13/[address] head/brain wo con CLINICAL HISTORY: 74 years-old Male with cardiac arrest. Acute cardiac arrest TECHNIQUE: Multiple axial CT images of the head were obtained without contrast. A dose lowering technique was utilized adhering to the principles of ALARA. CT DOSE: 1074.96 mGy.cm COMPARISON: Head CT 04/02/2015 FINDINGS: There is diffuse cerebral edema with loss of the haro-white differentiation involving the cerebral hemispheres and cerebellum. This results in effacement of the quadrigeminal plate cistern and near complete effacement of the fourth ventricle. Partial effacement of the sylvian cisterns. Heterogeneous areas of edema are noted within the cerebral hemispheres and occipital lobes. Hypodensities are noted within the lentiform nuclei symmetrically. Low-lying cerebellar tonsils. Hyperdensity of the cerebral venous sinuses and tentorium. No definite acute intracranial hemorrhage, midline shift or hydrocephalus. No acute calvarial fracture. Completely opacified right maxillary sinus. Secretions of the nasopharynx with moderate mucosal thickening of the ethmoid air cells and left maxillary sinus. Soft tissues and orbits are unremarkable. IMPRESSION: 1. 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 This results in effacement of the quadrigeminal plate cistern and fourth ventricle with partial effacement of the suprasellar cistern. 2. Low-lying cerebellar tonsils are suspicious for developing tonsillar herniation. 3. No definite acute intracranial hemorrhage or midline shift. Findings were discussed with Dr. Koehler on 11/13/2019 at 5:32 PM ACT 112: Negative or not required by law. The above report was generated using voice recognition software. It may contain grammatical, syntax or spelling errors. Electronically signed by: Slade Adames M.D. 11/13/2019 5:40 PM Dictated: 11/13/191730 Transcribed: 11/13/191730 Hospital Course (1) Cardiac arrest: Unwitnessed - found down at home. Prolonged CPR in the field and ED. Pt currently with pulse and BP on epinephrine drip. Being transferred to the ICU. Spoke with patient's family (son, daughter, [id number] and two granddaughters) - they would like to continue current measures for now (artificial ventilation, epi drip) but would not want additional chest compressions if pt would again lose pulse. Pt does have ICD in place - was working at last checkup but EMS raised concerns to family this AM as to whether or not it is functioning correctly. For now, continue current measures. Defer additional management plan to ICU team. Patient likely suffered large anoxic injury/ herniation syndrome. Family declined therapeutic hypothermia and opted to withdraw life sustaining measures and pursue comfort care. Time of : 1916 as pronounced by myself and Dr. Dwayne Koehler. Patients primary service was contacted and made aware of patient demise. Pronouncement section of the Certificate was filled out and signed by Oncology Physician Dr. Koehler Cause of : Primary - Cardiac arrest Secondary - anoxic brain injury Total Time Total Time Spent Total Time Spent (In Minutes): 15 minutes Total Time Includes: Examination of the Patient, Discharge Planning, Medication Reconciliation, Communication With Other Providers and Other Discharge Plan Discharge Items Patient Disposition: Reason For Visit: CARDIAC ARREST Follow-up/Referrals: Katelin Blackmon [Primary Care Provider] - Admission Data Admit Date/Time: 11/13/19 10:36 Other DC Date/Time DO NOT enter until pt leaves facility: 11/13/19 19:17
== END 2019-11-13 19:17 | disposition expired | DRG 296 ==
LOC: EDBD → ED 08:46 → MERGE 08:46 → 1E 10:36